=== PATIENT | female | born 1985 | race Caucasian/White ===

== ENCOUNTER → 2019-03-25 | Outpatient (CLI) | payer OTHER ==
[~2019-03-25] MED LIST: METHOTREXATE SODIUM (PF) 25 MG/ML 2 ML VIAL IM ONE
[2019-03-25 10:07] VITALS: BP 123/78; PULSE 69; RESP 18; TEMP 97.9
== END | disposition home or self-care (01) ==
LOC: PROCWHC3 08:58
PROVIDERS: ATTEND Obstetrics & Gynecology
DX: O00.109 Unspecified tubal pregnancy without intrauterine pregnancy (principal); Z3A.00 Weeks of gestation of pregnancy not specified
CPT/HCPCS: 96402; J9260

== ENCOUNTER → 2019-03-25 | Outpatient (CLI) | payer OTHER ==
[2019-03-25 09:01] LABS: HCT 40.9 % (34.0-46.0); HGB 13.2 gm/dL (11.4-16.0); MCH 28.4 pg (25.0-35.0); MCHC 32.2 g/dL (31.0-37.0); MCV 88.2 fL (80.0-100.0); Mean Platelet Volume 6.6; Platelet Count 256 k/uL (150-450); RBC 4.64 m/uL (3.80-5.40); RDW 12.6 % (11.5-15.5); WBC 4.7 k/uL (3.8-10.6)
[2019-03-25 16:50] LABS: HCG,Quantitative Serum 38.6 mIU/mL
== END | disposition home or self-care (01) ==
LOC: LABWHC1 08:44
PROVIDERS: ATTEND Obstetrics & Gynecology
DX: O00.90 Unspecified ectopic pregnancy without intrauterine pregnancy (principal); Z3A.00 Weeks of gestation of pregnancy not specified
CPT/HCPCS: 36415; 82565; 84450; 84520; 84702; 85027

== ENCOUNTER → 2019-03-28 | Outpatient (CLI) | payer OTHER | END | disposition home or self-care (01) | LOC: LABMAIN 14:10 | PROVIDERS: ATTEND Obstetrics & Gynecology | DX: O00.90 Unspecified ectopic pregnancy without intrauterine pregnancy (principal); Z3A.00 Weeks of gestation of pregnancy not specified | CPT/HCPCS: 36415; 84702 ==

== ENCOUNTER → 2019-03-31 | Outpatient (CLI) | payer OTHER ==
[2019-03-31 17:07] LABS: HCT 40.7 % (34.0-46.0); HGB 13.3 gm/dL (11.4-16.0); MCH 28.7 pg (25.0-35.0); MCHC 32.6 g/dL (31.0-37.0); Platelet Count 254 k/uL (150-450); RBC 4.63 m/uL (3.80-5.40); WBC 6.5 k/uL (3.8-10.6)
== END ==
LOC: LABWHC1 16:05
PROVIDERS: ATTEND Obstetrics & Gynecology
DX: O00.90 Unspecified ectopic pregnancy without intrauterine pregnancy (principal); Z3A.00 Weeks of gestation of pregnancy not specified
CPT/HCPCS: 36415; 84702; 85027

== ENCOUNTER → 2019-05-11 | Outpatient (CLI) | payer OTHER | END | disposition home or self-care (01) | LOC: LABWHC1 09:14 | PROVIDERS: ATTEND Obstetrics & Gynecology | DX: O20.0 Threatened abortion (principal) | CPT/HCPCS: 36415; 84702 ==

== ENCOUNTER → 2019-05-13 | Outpatient (CLI) | payer OTHER | END | disposition home or self-care (01) | LOC: LABMAIN 10:26 | PROVIDERS: ATTEND Obstetrics & Gynecology | DX: Z53.9 Procedure and treatment not carried out, unspecified reason (principal) ==

== ENCOUNTER → 2019-05-15 | Outpatient (CLI) | payer OTHER | END | disposition home or self-care (01) | LOC: LABWHC1 10:09 | PROVIDERS: ATTEND Obstetrics & Gynecology | DX: O20.0 Threatened abortion (principal); Z3A.00 Weeks of gestation of pregnancy not specified | CPT/HCPCS: 36415; 84702 ==

== ENCOUNTER → 2019-05-17 | Outpatient (CLI) | payer OTHER | END | disposition home or self-care (01) | LOC: LABWHC1 09:56 | PROVIDERS: ATTEND Obstetrics & Gynecology | DX: O20.0 Threatened abortion (principal); Z3A.00 Weeks of gestation of pregnancy not specified | CPT/HCPCS: 36415; 84702 ==

== ENCOUNTER → 2019-05-19 | Outpatient (CLI) | payer OTHER | END | disposition home or self-care (01) | LOC: LABWHC1 10:06 | PROVIDERS: ATTEND Obstetrics & Gynecology | DX: O20.0 Threatened abortion (principal); Z3A.00 Weeks of gestation of pregnancy not specified | CPT/HCPCS: 36415; 84702 ==

== ENCOUNTER → 2019-05-26 | Outpatient (CLI) | payer OTHER | END | disposition home or self-care (01) | LOC: LABWHC1 12:14 | PROVIDERS: ATTEND Obstetrics & Gynecology | DX: O03.9 Complete or unspecified spontaneous abortion without complication (principal) | CPT/HCPCS: 36415; 84702 ==

== ENCOUNTER → 2019-06-18 | Outpatient (CLI) | payer OTHER ==
--- NOTE | 2019-06-21 08:33 | MM ---
Reason for exam: screening (asymptomatic). Baseline mammogram. History: Patient is nulliparous. Family history of breast cancer in mother at age 33. Taking hormonal contraceptives beginning at age 25. Physical Findings: Nurse did not find any significant physical abnormalities on exam. MG Screening Mammo w CAD Bilateral CC and MLO view(s) were taken. The breast tissue is heterogeneously dense. This may lower the sensitivity of mammography. No suspicious abnormality. These results were verbally communicated with the patient and result sheet given to the patient on 06/18/19. ASSESSMENT: Negative, BI-RAD 1 RECOMMENDATION: Routine screening mammogram of both breasts in 1 year.
== END | disposition home or self-care (01) ==
LOC: RADMAMWWP 06:53
PROVIDERS: ATTEND Family Medicine
DX: Z12.31 Encounter for screening mammogram for malignant neoplasm of breast (principal)
CPT/HCPCS: 77067

== ENCOUNTER → 2020-10-17 | Outpatient (CLI) | payer OTHER | END | disposition home or self-care (01) | LOC: LABWHC1 14:37 | PROVIDERS: ATTEND Obstetrics & Gynecology | DX: O09.11 Supervision of pregnancy with history of ectopic pregnancy, first trimester (principal) | CPT/HCPCS: 36415; 84702 ==

== ENCOUNTER 2021-01-11 01:08 | Emergency (ER) | payer OTHER ==
[2021-01-11 01:16] VITALS: TEMP 97.8
--- NOTE | 2021-01-11 01:24 | ED ---
Chest Pain HPI - General Chief Complaint: Chest Pain Stated Complaint: Chest pain, 16 wks preg Time Seen by Provider: 01/11/21 01:19 Source: patient Mode of arrival: ambulatory Limitations: no limitations - History of Present Illness Initial Comments: 35-year-old female, 16 weeks , presents to emergency Department with a chief complaint of chest pain. Patient reports pain started while she was lying down at approximately 11 PM. Patient reports the abdominal pain started epigastric abdominal region and moved superiorly along the sternum, then radiated bilaterally under both breasts. She states this episode lasted for approximately 20 minutes and resolved. Patient reports her anxiety could also play a role in this. Patient reports the symptoms then return again but this time it lasted less. Denies associated shortness of breath. Denies any diaphoretic episodes, lightheadedness, dizziness, nausea or vomiting. She does report mild upper abdominal cramping which had resolved. Patient also has history of GERD and takes Protonix for it. She states this does not feel like her typical acid reflux. Denies any vaginal discharge, bleeding, hematuria, hematochezia, melena, dysuria, increased urgency or frequency. Her OB is she does not have any symptoms at this time. patient is A- and so is the . she was never given rhogam. patient took tylenol 1000mg prior to coming to ED. - Related Data Home Medications Medication Instructions Recorded Confirmed buPROPion [Wellbutrin] 100 mg PO DAILY 03/25/19 03/25/19 Allergies Allergy/AdvReac Type Severity Reaction Status Date / Time No Known Allergies Allergy Verified 01/11/21 01:16 Review of Systems ROS Statement: Those systems with pertinent positive or pertinent negative responses have been documented in the HPI. ROS Other: All systems not noted in ROS Statement are negative. EKG Findings - EKG Comments: EKG Findings:: Sinus arrhythmia. Ventricular rate 74, [place] 142, care is 90, QTC 441. Past Medical History Past Medical History: No Reported History History of Any Multi-Drug Resistant Organisms: None Reported Past Surgical History: No Surgical Hx Reported Past Psychological History: No Psychological Hx Reported Smoking Status: Never smoker Past Alcohol Use History: None Reported Past Drug Use History: None Reported General Exam Limitations: no limitations General appearance: alert, in no apparent distress, anxious Head exam: Present: atraumatic, normocephalic, normal inspection Eye exam: Present: normal appearance, PERRL, EOMI Pupils: Present: normal accommodation ENT exam: Present: normal exam, normal oropharynx, mucous membranes moist, TM's normal bilaterally, normal external ear exam Neck exam: Present: normal inspection, full ROM. Absent: tenderness Respiratory exam: Present: normal lung sounds bilaterally, chest wall tenderness (reproducible midsternal chest pain ). Absent: respiratory distress, wheezes, rales, rhonchi, stridor Cardiovascular Exam: Present: regular rate, normal rhythm, normal heart sounds GI/Abdominal exam: Present: soft, tenderness (Mild epigastric abdominal tenderness). Absent: distended, guarding, rebound, rigid Extremities exam: Present: normal inspection, full ROM, normal capillary refill. Absent: tenderness, pedal edema, joint swelling Back exam: Present: normal inspection, full ROM. Absent: tenderness, CVA tenderness (R), CVA tenderness (L) Neurological exam: Present: alert, oriented X3 Psychiatric exam: Present: normal affect, normal mood, anxious Skin exam: Present: warm, dry, intact, normal color Course Vital Signs 01/11/21 01/11/21 01:14 03:33 Temperature 97.8 F Pulse Rate 94 78 Respiratory 16 18 Rate Blood Pressure 142/79 106/64 O2 Sat by Pulse 96 99 Oximetry Chest Pain MDM - MDM 35-year-old female, 16 weeks , presents to emergency Department with a chief complaint of chest pain. On physical examination, patient is quite anxious as she doesn't have any symptoms at this time. Vital signs are within normal limits. Reproducible midsternal chest pain. No associated shortness of breath. CBC CMP unremarkable. Coags within normal limits. EKG showing sinus arrhythmia. Initial troponin is negative. UA showed no signs of UTI or proteinouria. Trace amount of ketones. Chest x-ray is unremarkable. Patient continues to be asymptomatic in emergency department. Initial blood pressure 142/79. Abdominal ultrasound reveals a single live intrauterine , 17 weeks 3 days gestation. heart tones 167. Repeat blood pressure 106/64. I advised her to follow-up with her OB. Strict return parameters were thoroughly discussed with patient was understanding and agreeable. Case discussed with Disposition Clinical Impression: Atypical chest pain Disposition: HOME SELF-CARE Condition: Stable Instructions (If sedation given, give patient instructions): Chest Pain (ED) Additional Instructions: Follow-up with her OB. Please return to the Emergency Department if symptoms worsen or any other concerns. Is patient prescribed a controlled substance at d/c from ED?: No Referrals: Cierra Montiel DO [Primary Care Provider] - 1-2 days Time of Disposition: 03:28
--- NOTE | 2021-01-11 02:18 | XR ---
EXAM: XR Chest, 2 Views CLINICAL HISTORY: ITS.REASON XR Reason: Chest Pain TECHNIQUE: Frontal and lateral views of the chest. COMPARISON: No relevant prior studies available. FINDINGS: Lungs: No focal consolidation. The pulmonary vasculature demonstrates no significant radiographic abnormality. Pleural space: Unremarkable. No pneumothorax. No large pleural effusion. Heart: Unremarkable. No cardiomegaly. Mediastinum: Unremarkable. No significant abnormality identified. The trachea is midline. Bones/joints: Unremarkable. IMPRESSION: No focal consolidation or acute cardiopulmonary process identified.
[2021-01-11 02:20] LABS: Appearance,Urine Clear (Clear); Bilirubin,Urine Negative (Negative); Blood,Urine Negative (Negative); Color,Urine Light Yellow; Glucose,Urine (UA) Negative (Negative); Ketones,Urine Trace (Negative); Leukocyte Esterase,Urine Negative (Negative); Nitrite,Urine Negative (Negative); Protein,Urine Negative (Negative); Specific Gravity,Urine 1.005 (1.001-1.035); Urobilinogen,Urine <2.0 mg/dL (<2.0)
[2021-01-11 02:24] LABS: Basophils % (A) 0 %; Eosinophils # (A) 0.2 k/uL (0-0.7); Eosinophils % (A) 2 %; HCT 36.2 % (34.0-46.0); HGB 12.3 gm/dL (11.4-16.0); Lymphocytes # (A) 1.3 k/uL (1.0-4.8); Lymphocytes % (A) 13 %; MCH 29.2 pg (25.0-35.0); MCHC 33.9 g/dL (31.0-37.0); MCV 86.2 fL (80.0-100.0); Mean Platelet Volume 7.7; Monocytes # (A) 0.5 k/uL (0-1.0); Monocytes % (A) 5 %; Neutrophils # (A) 7.6 k/uL (1.3-7.7); Neutrophils % (A) 79 %; Platelet Count 198 k/uL (150-450); RBC 4.21 m/uL (3.80-5.40); RDW 13.2 % (11.5-15.5); WBC 9.6 k/uL (3.8-10.6)
[2021-01-11 02:33] LABS: ALT 66 U/L (4-34); AST 65 U/L (14-36); African American GFR (CKD) >90 (>60 ml/min/1.73 sqM); Albumin 3.3 g/dL (3.5-5.0); Alkaline Phosphatase 56 U/L (38-126); Anion Gap 5 mmol/L; Blood Urea Nitrogen 8 mg/dL (7-17); Carbon Dioxide 26 mmol/L (22-30); Chloride 103 mmol/L (98-107); Glucose 95 mg/dL (74-99); INR 0.9 (<1.2); Magnesium 1.7 mg/dL (1.6-2.3); Non-African American GFR(CKD) >90 (>60 ml/min/1.73 sqM); Partial Thromboplastin Time 23.8 sec (22.0-30.0); Potassium 3.8 mmol/L (3.5-5.1); Prothrombin Time 9.6 sec (9.0-12.0); Sodium 134 mmol/L (137-145); Total Bilirubin 0.7 mg/dL (0.2-1.3)
[2021-01-11 03:33] VITALS: BP 106/64; PULSE 78; RESP 18
--- NOTE | 2021-01-11 03:43 | US ---
EXAM: US Second or Third Trimester , Transabdominal CLINICAL HISTORY: ITS.REASON US Reason: epigastric abd pain TECHNIQUE: Real-time transabdominal obstetrical ultrasound of the maternal pelvis and a second or third trimester with image documentation. COMPARISON: No relevant prior studies available. FINDINGS: Fetus: Terrazas. Heart rate: See below. Presentation: Single intrauterine gestation identified in the cephalic position. Positive heart tones noted at 167 bpm. Placenta: The placenta is posterior in location without evidence for previa or abruption. There is a hypoechoic structure along the deep margin of the placenta measuring only 1.3 x 0.6 x 2.2 cm. Evaluation for internal vascular flow was not performed in this region. Amniotic fluid: The ERLINDA is 10.3 cm. Anatomy: See below. BIOMETRICS Gestational age: The estimated gestational age by biometry is consistent with 17 weeks 3 days. BASILIO: The estimated date of delivery is 06/18/2021. EFW: The estimated weight is 182.8 g. BPD: The biparietal diameter is consistent with 17 weeks 6 days. HC: Head circumference is consistent with 17 weeks 6 days. AC: The abdominal circumference is consistent with 17 weeks 2 days. FL: The femur length is consistent with 16 weeks 5 days. MATERNAL: Uterus: Unremarkable. No myometrial mass. Cervix: The cervix is closed, measuring 3 cm. Free fluid: No free fluid. IMPRESSION: 1. Single intrauterine gestation identified in the cephalic position. Positive heart tones noted at 167 bpm. 2. The placenta is posterior in location without evidence for previa or abruption. 3. The estimated gestational age by biometry is consistent with 17 weeks 3 days. The estimated date of delivery is 06/18/2021. 4. The ERLINDA is 10.3 cm.
== END 2021-01-11 04:20 | disposition home or self-care (01) ==
LOC: EC 01:08
DX: O99.891 Other specified diseases and conditions complicating pregnancy (principal); O99.612 Diseases of the digestive system complicating pregnancy, second trimester; R07.89 Other chest pain; Z3A.16 16 weeks gestation of pregnancy
CPT/HCPCS: 36415; 71046; 76805; 80053; 81003; 83735; 84484; 85025; 85610; 85730; 93005; 99285

== ENCOUNTER 2021-01-12 14:36 | Inpatient (IN) | payer OTHER ==
--- NOTE | 2021-01-12 15:56 | ED ---
General Adult HPI <Remy Monge - Last Filed: 01/12/21 18:03> - General Source: patient, RN notes reviewed Mode of arrival: wheelchair Limitations: no limitations <Rory Herrera - Last Filed: 01/12/21 18:13> - General Chief complaint: Abdominal Pain Stated complaint: epigastric pain radiating to right flank Time Seen by Provider: 01/12/21 15:32 - History of Present Illness Initial comments: Patient is a 35-year-old female presents emergency, complaining of epigastric pain that radiates to her right flank. She did note that the pain came out of nowhere several hours ago was very intense 10 out of 10 but has since been relieved with time. She noted her epigastric was tender to the touch and [facility] pushed on it. She is a partially 17/2 weeks . Her did note that she is her fourth she's had 2 miscarriages and 1 ectopic. She was lying in bed comfortable in no apparent distress or pain during exam and interview. She did call her [employer] who told her to come in to get evaluated for possible gallbladder issues. She denied chest pain shortness breath headache nausea vomiting diarrhea constipation fever fatigue chills (Rory Herrera) - Related Data Home Medications Medication Instructions Recorded Confirmed Desvenlafaxine Succinate [Pristiq 50 mg PO DAILY 01/12/21 01/12/21 ER] Pantoprazole [Protonix] 40 mg PO DAILY 01/12/21 01/12/21 Skv-Ocjk-Aedbz Acid 1 cap PO DAILY 01/12/21 01/12/21 [-U Capsule (formulary)] buPROPion HCL [Wellbutrin XL] 300 mg PO DAILY 01/12/21 01/12/21 Allergies Allergy/AdvReac Type Severity Reaction Status Date / Time coconut Allergy Anaphylaxis Verified 01/12/21 17:06 Review of Systems ROS Other: All systems not noted in ROS Statement are negative. <Remy Monge - Last Filed: 01/12/21 18:03> ROS Other: All systems not noted in ROS Statement are negative. <Rory Herrera - Last Filed: 01/12/21 18:13> ROS Statement: Those systems with pertinent positive or pertinent negative responses have been documented in the HPI. Past Medical History Past Medical History: No Reported History History of Any Multi-Drug Resistant Organisms: None Reported Past Surgical History: No Surgical Hx Reported Past Psychological History: No Psychological Hx Reported Smoking Status: Never smoker Past Alcohol Use History: None Reported Past Drug Use History: None Reported <Rory Herrera - Last Filed: 01/12/21 18:13> General Exam Limitations: no limitations General appearance: alert, in no apparent distress Head exam: Present: atraumatic, normocephalic, normal inspection Eye exam: Present: normal appearance, PERRL, EOMI. Absent: scleral icterus, co njunctival injection, periorbital swelling ENT exam: Present: normal exam, mucous membranes moist Neck exam: Present: normal inspection. Absent: tenderness, meningismus, lymphadenopathy Respiratory exam: Present: normal lung sounds bilaterally. Absent: respiratory distress, wheezes, rales, rhonchi, stridor Cardiovascular Exam: Present: regular rate, normal rhythm, normal heart sounds. Absent: systolic murmur, diastolic murmur, rubs, gallop, clicks GI/Abdominal exam: Present: soft, normal bowel sounds. Absent: distended, tenderness, guarding, rebound, rigid Extremities exam: Present: normal inspection, full ROM, normal capillary refill. Absent: tenderness, pedal edema, joint swelling, calf tenderness Neurological exam: Present: alert, oriented X3, CN II-XII intact Psychiatric exam: Present: normal affect, normal mood Skin exam: Present: warm, dry, intact, normal color. Absent: rash <Rory Herrera - Last Filed: 01/12/21 18:13> Course Vital Signs 01/12/21 01/12/21 14:38 17:58 Temperature 97.9 F Pulse Rate 83 Respiratory 22 Rate Blood Pressure 131/88 118/75 O2 Sat by Pulse 100 Oximetry EKG Findings - EKG Comments: EKG Findings:: Vent Rate 69 beats minute, CT interval 134 ms, QRS duration 90 ms, QT/QTC 384/4 ms, PareT axis 2/90/3. Normal sinus rhythm, rightward axis, borderline ECG. <Rory Herrera - Last Filed: 01/12/21 18:13> Medical Decision Making - Lab Data Result diagrams: 01/12/21 16:43 01/12/21 16:43 <Remy Monge - Last Filed: 01/12/21 18:03> - Lab Data Result diagrams: 01/12/21 16:43 01/12/21 16:43 - EKG Data -: EKG Interpreted by Me EKG shows normal: sinus rhythm Rate: normal - Radiology Data Radiology results: report reviewed, image reviewed <Rory Herrera - Last Filed: 01/12/21 18:13> - Medical Decision Making Patient reevaluated and reexamined by myself, Dr. Monge. Patient is resting comfortably in bed, discomfort is mild at this time. Patient does have some mild tenderness right upper quadrant. Patient does have elevation of liver enzymes. Ultrasound negative. Case was discussed in detail with Dr. Kearns who does feel comfortable and an OB standpoint however does request surgical consult. Case discussed with Dr. Wilkins who is suspicious of recent passed gallstone. He does recommend admission with IV hydration and repeat labs in the morning. (Remy Monge) 32-year-old female complaining of epigastric pain that radiates to her right flank. Urinalysis, ultrasound of gallbladder ordered. Labs unremarkable. ultrasound and transvaginal ultrasound ordered. Ultrasounds within normal limits. Case discussed with Dr. Monge, was decided patient will be admitted to observation. With repeat labs in the morning (Rory Herrera) - Lab Data Lab Results 01/12/21 01/12/21 01/12/21 Range/Units 16:04 16:43 16:43 WBC 9.0 (3.8-10.6) k/uL RBC 4.43 (3.80-5.40) m/uL Hgb 13.1 (11.4-16.0) gm/dL Hct 39.0 (34.0-46.0) % MCV 87.9 (80.0-100.0) fL MCH 29.4 (25.0-35.0) pg MCHC 33.5 (31.0-37.0) g/dL RDW 13.3 (11.5-15.5) % Plt Count 206 (150-450) k/uL MPV 7.4 Neutrophils % 85 % Lymphocytes % 10 % Monocytes % 4 % Eosinophils % 1 % Basophils % 0 % Neutrophils # 7.6 (1.3-7.7) k/uL Lymphocytes # 0.9 L (1.0-4.8) k/uL Monocytes # 0.4 (0-1.0) k/uL Eosinophils # 0.1 (0-0.7) k/uL Basophils # 0.0 (0-0.2) k/uL Sodium 137 (137-145) mmol/L Potassium 4.1 (3.5-5.1) mmol/L Chloride 104 (98-107) mmol/L Carbon Dioxide 24 (22-30) mmol/L Anion Gap 9 mmol/L BUN 5 L (7-17) mg/dL Creatinine 0.52 (0.52-1.04) mg/dL Est GFR (CKD-EPI)AfAm >90 (>60 ml/min/1.73 sqM) Est GFR (CKD-EPI)NonAf >90 (>60 ml/min/1.73 sqM) Glucose 75 (74-99) mg/dL Calcium 9.7 (8.4-10.2) mg/dL Total Bilirubin 1.6 H (0.2-1.3) mg/dL AST 311 H (14-36) U/L ALT 490 H (4-34) U/L Alkaline Phosphatase 103 (38-126) U/L Total Protein 7.2 (6.3-8.2) g/dL Albumin 4.1 (3.5-5.0) g/dL Amylase 89 (30-110) U/L Lipase 334 H (23-300) U/L Urine Color Yellow Urine Appearance Clear (Clear) Urine pH 6.5 (5.0-8.0) Ur Specific Page 1.003 (1.001-1.035) Urine Protein Negative (Negative) Urine Glucose (UA) Negative (Negative) Urine Ketones Negative (Negative) Urine Blood Negative (Negative) Urine Nitrite Negative (Negative) Urine Bilirubin Negative (Negative) Urine Urobilinogen <2.0 (<2.0) mg/dL Ur Leukocyte Esterase Negative (Negative) - EKG Data EKG Comments: Vent Rate 69 beats minute, CT interval 134 ms, QRS duration 90 ms, QT/QTC 384/4 ms, PareT axis 2/90/3. Normal sinus rhythm, rightward axis, borderline ECG. (Rory Herrera) - Radiology Data Gallbladder: No gallstones or dilated ducts. Normal right kidney. No free fluid ultrasound: Ultrasound gestational age is 17 weeks 5 days. No [place] getting process seen (Rory Herrera) Disposition <Remy Monge - Last Filed: 01/12/21 18:03> Is patient prescribed a controlled substance at d/c from ED?: No Time of Disposition: 18:13 <Rory Herrera - Last Filed: 01/12/21 18:13> Clinical Impression: Abnormal labor, Elevated liver enzymes Disposition: ADMITTED IP TO THIS HOSP Condition: Stable Referrals: Cierra Montiel DO [Primary Care Provider] - 1-2 days
[2021-01-12 16:14] LABS: Appearance,Urine Clear (Clear); Bilirubin,Urine Negative (Negative); Blood,Urine Negative (Negative); Color,Urine Yellow; Glucose,Urine (UA) Negative (Negative); Ketones,Urine Negative (Negative); Leukocyte Esterase,Urine Negative (Negative); Nitrite,Urine Negative (Negative); PH, Urine 6.5 (5.0-8.0); Protein,Urine Negative (Negative); Specific Gravity,Urine 1.003 (1.001-1.035); Urobilinogen,Urine <2.0 mg/dL (<2.0)
[2021-01-12] MEDS ORDERED: SODIUM CHLORIDE 0.9% 1,000 ML IV STA (16:33)
--- NOTE | 2021-01-12 16:39 | US ---
EXAMINATION TYPE: US gallbladder DATE OF EXAM: 01/12/2021 COMPARISON: NONE CLINICAL HISTORY: Epigastric pain that radiates to her right flank.. EXAM MEASUREMENTS: Liver Length: 11.8 cm Gallbladder Wall: 0.3 cm CBD: 0.4 cm Right Kidney: 12.8 x 5.2 x 4.6 cm Technically difficult exam due to extensive midline bowel gas. Pancreas: visualized portions wnl Liver: wnl Gallbladder: No stones seen Evidence for sonographic Chan's sign: Yes CBD: wnl Right Kidney: No hydronephrosis or masses seen IMPRESSION: No gallstones or dilated ducts. Normal right kidney. No free fluid.
[2021-01-12 16:53] LABS: Basophils % (A) 0 %; Eosinophils # (A) 0.1 k/uL (0-0.7); Eosinophils % (A) 1 %; HGB 13.1 gm/dL (11.4-16.0); Lymphocytes # (A) 0.9 k/uL (1.0-4.8); Lymphocytes % (A) 10 %; MCH 29.4 pg (25.0-35.0); MCHC 33.5 g/dL (31.0-37.0); MCV 87.9 fL (80.0-100.0); Mean Platelet Volume 7.4; Monocytes # (A) 0.4 k/uL (0-1.0); Monocytes % (A) 4 %; Neutrophils # (A) 7.6 k/uL (1.3-7.7); Neutrophils % (A) 85 %; Platelet Count 206 k/uL (150-450); RBC 4.43 m/uL (3.80-5.40); RDW 13.3 % (11.5-15.5)
[2021-01-12 17:01] LABS: ALT 490 U/L (4-34); AST 311 U/L (14-36); African American GFR (CKD) >90 (>60 ml/min/1.73 sqM); Albumin 4.1 g/dL (3.5-5.0); Alkaline Phosphatase 103 U/L (38-126); Amylase 89 U/L (30-110); Anion Gap 9 mmol/L; Blood Urea Nitrogen 5 mg/dL (7-17); Calcium 9.7 mg/dL (8.4-10.2); Carbon Dioxide 24 mmol/L (22-30); Chloride 104 mmol/L (98-107); Glucose 75 mg/dL (74-99); Lipase 334 U/L (23-300); Non-African American GFR(CKD) >90 (>60 ml/min/1.73 sqM); Potassium 4.1 mmol/L (3.5-5.1); Sodium 137 mmol/L (137-145); Total Bilirubin 1.6 mg/dL (0.2-1.3); Total Protein 7.2 g/dL (6.3-8.2)
--- NOTE | 2021-01-12 17:11 | US ---
EXAMINATION TYPE: US OB >= 14 wk fetus DATE OF EXAM: 01/12/2021 COMPARISON: Yesterday CLINICAL HISTORY: Abdominal pain Pain. Ultrasound was also performed 1 day prior. No injury since l ast exam. TECHNIQUE: Transabdominal (TA) GESTATIONAL AGE / DATING Physician Established: (16 weeks/5 days) EDC: 06/24/2021 Dates by Current Scan: (17 weeks/5 days) EDC: 06/17/2021 Beta HCG (if available): Not available at this time SURVEY IUP: Single PLACENTA: Posterior PREVIA: No Previa ERLINDA: 13.4 cm Normal CERVICAL LENGTH (transabdominal: norm > 3.0cm): 3.1 cm BIOMETRY PRESENTATION: Variable BPD: 4.2 cm 18 weeks / 6 days HC: 14.6 cm 17 weeks / 5 days AC: 12.6 cm 18 weeks / 1 days FL: 2.2 cm 16 weeks / 3 days ESTIMATED WEIGHT IN GRAMS: 195.6 grams ESTIMATED WEIGHT IN LBS/OZ: 0 lbs. 7 oz. WEIGHT PERCENTAGE BASED ON ESTABLISHED DATES: 87.8% HC/AC: 1.2 Normal FL/AC: 17.2 HEART RATE: 148 bpm RHYTHM: Normal IMPRESSION: Ultrasound gestational age is 17 weeks and 5 days. No complicating process seen.
[2021-01-12] MEDS: SODIUM CHLORIDE 0.9% 1,000 ML IV SCH (19:45)
[2021-01-12] MEDS ORDERED: ACETAMINOPHEN TAB 325 MG TAB PO PRN (21:27)
[2021-01-12] MEDS ORDERED: ACETAMINOPHEN TAB 325 MG TAB PO SCH (21:30)
[2021-01-12] MEDS ORDERED: ONDANSETRON 4 MG/2 ML VIAL IVP SCH (21:30)
[2021-01-12 23:55] LABS: INR 0.9 (<1.2)
[2021-01-12 23:56] LABS: Partial Thromboplastin Time 23.7 sec (22.0-30.0)
[2021-01-13] MEDS: SODIUM CHLORIDE 0.9% 1,000 ML IV SCH ×2 (09:00→15:08)
[2021-01-13 09:56] VITALS: BMI 27.8
[2021-01-13 09:59] LABS: ALT 374 U/L (4-34); AST 177 U/L (14-36); African American GFR (CKD) >90 (>60 ml/min/1.73 sqM); Alkaline Phosphatase 93 U/L (38-126); Amylase 64 U/L (30-110); Anion Gap 4 mmol/L; Blood Urea Nitrogen 4 mg/dL (7-17); Calcium 8.8 mg/dL (8.4-10.2); Carbon Dioxide 24 mmol/L (22-30); Chloride 108 mmol/L (98-107); Glucose 79 mg/dL (74-99); Lipase 225 U/L (23-300); Non-African American GFR(CKD) >90 (>60 ml/min/1.73 sqM); Potassium 3.9 mmol/L (3.5-5.1); Sodium 136 mmol/L (137-145); Total Bilirubin 0.8 mg/dL (0.2-1.3); Total Protein 5.7 g/dL (6.3-8.2)
[2021-01-13 10:01] LABS: Basophils % (A) 0 %; Eosinophils # (A) 0.1 k/uL (0-0.7); Eosinophils % (A) 1 %; HCT 35.9 % (34.0-46.0); HGB 11.9 gm/dL (11.4-16.0); Lymphocytes # (A) 1.2 k/uL (1.0-4.8); Lymphocytes % (A) 16 %; MCH 29.6 pg (25.0-35.0); MCHC 33.2 g/dL (31.0-37.0); MCV 89.2 fL (80.0-100.0); Mean Platelet Volume 7.8; Monocytes # (A) 0.3 k/uL (0-1.0); Monocytes % (A) 5 %; Neutrophils # (A) 5.6 k/uL (1.3-7.7); Neutrophils % (A) 78 %; Platelet Count 184 k/uL (150-450); RBC 4.02 m/uL (3.80-5.40); RDW 13.1 % (11.5-15.5); WBC 7.3 k/uL (3.8-10.6)
--- NOTE | 2021-01-13 11:04 | P.CON ---
Consult Note - . Consult date: 01/13/21 Assessment/Plan:: 35 year old at 17 wks gestation. Presented to ER with RUQ and epigastric pain, 10/10 severity, triggered after Ensure drink. U/S gallbladder (-) but elevated liver enzymes noted. U/S fetus WNL. PMHx: anxiety PSHx: ovarian cyst excision Meds: protonix, buproprion, vitamin Allergies: coconut (itching) Social hx: , nonsmoker, no alcohol or drug use. 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 Pt is BRCA (-). On exam pt is 5'5", 166#, BP 119/56. Genreal exam WNL, chest clear, RRR with out murmur. Abdomen is soft, fundus 17 wk size, FHT's 150's. Extremities (-). Active bowel sounds. Pain this morning 2/10, patient is hungry. Repeat labs improved, ALT: 374, AST: 177, Lipase 225. WBC 9.0 Impression" 17 wk IUP with suspected passage of biliary stone. Improved this morning. Plan: Discussed in detail with Dr. Jean-Baptiste at the bedside. Will advance diet now, monitor progress. Option of cholecystectomy vs. conservative management discussed. Patient ot discuss with , possible surgery tomorrow am pending decision and clinical progress. Risks of surgery in the second trimester discussed. Will follow.
[2021-01-13 12:04] LABS: Urine Alcohol Negative (Negative); Urine Barbiturate Negative (Negative); Urine Cocaine Negative (Negative); Urine Methadone Negative (Negative); Urine Opiates Negative (Negative); Urine Phencyclidine Negative (Negative)
--- NOTE | 2021-01-13 12:07 | P.GSHP ---
History of Present Illness H&P Date: 01/13/21 Chief Complaint: Abdominal pain This is a 35-year-old female who is 17 weeks . Patient's had intermittent attacks of right quadrant pain which radiated to her back. Patient had 2 visits the emergency room this week. Patient's found have evidence of choledocholithiasis on her liver function tests. Patient states her pain is improved currently. Past Medical History Past Medical History: No Reported History History of Any Multi-Drug Resistant Organisms: None Reported Past Surgical History: No Surgical Hx Reported Additional Past Surgical History / Comment(s): Ovarian cyst removal 2001. 1 Ectopic pregnacy. 2 miscarrages Past Anesthesia/Blood Transfusion Reactions: No Reported Reaction Past Psychological History: Anxiety, Depression Smoking Status: Never smoker Past Alcohol Use History: None Reported Past Drug Use History: None Reported - Past Family History Mother Family Medical History: Diabetes Mellitus Additional Family Medical History / Comment(s): Breast cancer in early Medications and Allergies Home Medications Medication Instructions Recorded Confirmed Type Desvenlafaxine Succinate [Pristiq 50 mg PO DAILY 01/12/21 01/12/21 History ER] Pantoprazole [Protonix] 40 mg PO DAILY 01/12/21 01/12/21 History Jyv-Gpee-Tyetk Acid 1 cap PO DAILY 01/12/21 01/12/21 History [-U Capsule (formulary)] buPROPion HCL [Wellbutrin XL] 300 mg PO DAILY 01/12/21 01/12/21 History Allergies Allergy/AdvReac Type Severity Reaction Status Date / Time coconut Allergy Anaphylaxis Verified 01/12/21 17:06 nicotine Allergy Rash/Hives Verified 01/12/21 23:19 Surgical - Exam Vital Signs Temp Pulse Resp BP Pulse Ox 97.9 F 83 22 131/88 100 01/12/21 14:38 01/12/21 14:38 01/12/21 14:38 01/12/21 14:38 01/12/21 14:38 - General well developed, well nourished, no distress - Eyes PERRL - ENT normal pinna - Neck no masses - Respiratory normal expansion - Cardiovascular Rhythm: regular - Abdomen Abdomen: soft, non tender Results - Labs 01/13/21 08:58 01/13/21 08:58 Abnormal Lab Results - Last 24 Hours (Table) 0301/12/21 01/13/21 Range/Units 16:43 16:43 08:58 Lymphocytes # 0.9 L (1.0-4.8) k/uL Sodium 136 L (137-145) mmol/L Chloride 108 H (98-107) mmol/L BUN 5 L 4 L (7-17) mg/dL Creatinine 0.51 L (0.52-1.04) mg/dL Total Bilirubin 1.6 H (0.2-1.3) mg/dL AST 311 H 177 H (14-36) U/L ALT 490 H 374 H (4-34) U/L Total Protein 5.7 L (6.3-8.2) g/dL Albumin 3.0 L (3.5-5.0) g/dL Lipase 334 H (23-300) U/L Diabetes panel 01/12/21 01/13/21 Range/Units 16:43 08:58 Sodium 137 136 L (137-145) mmol/L Potassium 4.1 3.9 (3.5-5.1) mmol/L Chloride 104 108 H (98-107) mmol/L Carbon Dioxide 24 24 (22-30) mmol/L BUN 5 L 4 L (7-17) mg/dL Creatinine 0.52 0.51 L (0.52-1.04) mg/dL Glucose 75 79 (74-99) mg/dL Calcium 9.7 8.8 (8.4-10.2) mg/dL AST 311 H 177 H (14-36) U/L ALT 490 H 374 H (4-34) U/L Alkaline Phosphatase 103 93 (38-126) U/L Total Protein 7.2 5.7 L (6.3-8.2) g/dL Albumin 4.1 3.0 L (3.5-5.0) g/dL Calcium panel 01/12/21 01/13/21 Range/Units 16:43 08:58 Calcium 9.7 8.8 (8.4-10.2) mg/dL Albumin 4.1 3.0 L (3.5-5.0) g/dL Pituitary panel 01/12/21 01/13/21 Range/Units 16:43 08:58 Sodium 137 136 L (137-145) mmol/L Potassium 4.1 3.9 (3.5-5.1) mmol/L Chloride 104 108 H (98-107) mmol/L Carbon Dioxide 24 24 (22-30) mmol/L BUN 5 L 4 L (7-17) mg/dL Creatinine 0.52 0.51 L (0.52-1.04) mg/dL Glucose 75 79 (74-99) mg/dL Calcium 9.7 8.8 (8.4-10.2) mg/dL Adrenal panel 01/12/21 01/13/21 Range/Units 16:43 08:58 Sodium 137 136 L (137-145) mmol/L Potassium 4.1 3.9 (3.5-5.1) mmol/L Chloride 104 108 H (98-107) mmol/L Carbon Dioxide 24 24 (22-30) mmol/L BUN 5 L 4 L (7-17) mg/dL Creatinine 0.52 0.51 L (0.52-1.04) mg/dL Glucose 75 79 (74-99) mg/dL Calcium 9.7 8.8 (8.4-10.2) mg/dL Total Bilirubin 1.6 H 0.8 (0.2-1.3) mg/dL AST 311 H 177 H (14-36) U/L ALT 490 H 374 H (4-34) U/L Alkaline Phosphatase 103 93 (38-126) U/L Total Protein 7.2 5.7 L (6.3-8.2) g/dL Albumin 4.1 3.0 L (3.5-5.0) g/dL Assessment and Plan Assessment: Choledocholithiasis. Patient most likely has microcalcifications. The patient will be scheduled for laparoscopic cholecystectomy in .. Dr. Manjarrez, myself and the patient have discussed these findings.
[2021-01-13] MEDS: buPROPion XL 300 MG TAB.ER.24H PO SCH (16:04)
[2021-01-13] MEDS: DESVENLAFAXINE SUCCINATE 50 MG TAB.ER.24H PO SCH (16:04)
[2021-01-13] MEDS: ONDANSETRON 4 MG/2 ML VIAL IVP PRN (17:39)
[2021-01-13 18:55] LABS: Hepatitis A Antibody IgM Non-Reactive (Non-Reactive); Hepatitis B Core IgM Non-Reactive (Non-Reactive); Hepatitis B Surface Antigen Non-Reactive (Non-Reactive); Hepatitis C IgG Antibody Non-Reactive (Non-Reactive)
--- NOTE | 2021-01-13 20:34 | CONS ---
CONSULTATION I am covering for Dr. Blevins. DATE OF SERVICE: 01/13/2021. REASON FOR CONSULTATION: Advice regarding anxiety, depression requested by Dr. Alejandre. HISTORY OF PRESENT ILLNESS: This 35-year-old woman with a past medical history of anxiety, depression, history of ectopic , miscarriages, ovarian cyst removal in 2001, being followed by Dr. Blevins in the outpatient setting is complaining of right upper quadrant abdominal pain. The patient came to [facility]. Cholelithiasis suspected and Dr. Alejandre is planning tentative cholecystectomy. The patient is apparently 17 weeks . The patient has seen Dr. Manjarrez also. There is no history of fever, rigors or chills. No history of headache, loss of consciousness, seizures. Liver enzymes elevated. PAST MEDICAL HISTORY: History of ovarian cyst. History of ectopic . Miscarriages. Anxiety and depression. MEDICATIONS: Home medications include: Bupropion, multivitamins, and Protonix, Pristiq ER. ALLERGIES: NICOTINE. FAMILY HISTORY: History of diabetes, breast cancer. SOCIAL HISTORY: No history of smoking. No history of alcohol. REVIEW OF SYSTEMS: ENT: No diminished vision. No diminished hearing. CARDIOVASCULAR: No angina. RESPIRATORY: As mentioned earlier. GI: As mentioned earlier. : As mentioned earlier. NERVOUS SYSTEMS: No numbness, weakness. ALLERGY/IMMUNOLOGY: No asthma or hayfever. MUSCULOSKELETAL: As mentioned earlier. HEMATOLOGY/ONCOLOGY: No history of anemia. ENDOCRINE: No history of diabetes or hypothyroidism. CONSTITUTIONAL: As mentioned earlier. DERMATOLOGY: Negative. RHEUMATOLOGY: Negative. PSYCHIATRIC: As mentioned earlier. PHYSICAL EXAM: Patient is alert and oriented times three. Pulse 83, blood pressure 137/70, respiration 18, temperature 98.3. Pulse ox 94% on room air. HEENT is conjunctivae normal. NECK: No JVD. CARDIOVASCULAR: S1, S2 muffled. RESPIRATION: Breath sounds diminished in the bases. No rhonchi. No crackles. ABDOMEN: Soft, 17 weeks , no discomfort. No guarding. No rigidity. No mass palpable. LEGS: No edema. NERVOUS SYSTEM: No focal deficits. LABORATORY DATA: CBC within normal limits. Sodium 136. LFT are 311 and 490, currently 177 and 374. Lipase is 334. ASSESSMENT: 1. Upper abdominal possibly acute cholelithiasis and cholecystitis. 2. Elevated LFTs. 3. Elevated lipase. 4. Hyponatremia. 5. Seventeen week . 6. History of anxiety, depression. 7. Ectopic . 8. Miscarriage. RECOMMENDATIONS AND DISCUSSION: In this 35 -year-old woman who presented with multiple medical issues, at this time I recommend to continue the current management and symptomatic treatment. Otherwise, at this time, I recommend repeat labs. Closely follow with surgery. Hepatitis panel has been noted. Otherwise, DVT prophylaxis and we will follow the patient closely. Thank you Dr. Alejandre for letting us participate in the care of this patient. Prognosis guarded. MMODL / IJN: [id number] / MTDD
[2021-01-14 06:42] LABS: Basophils % (A) 0 %; Eosinophils # (A) 0.2 k/uL (0-0.7); Eosinophils % (A) 2 %; HGB 11.8 gm/dL (11.4-16.0); Lymphocytes # (A) 1.4 k/uL (1.0-4.8); Lymphocytes % (A) 21 %; MCH 30.1 pg (25.0-35.0); MCHC 33.8 g/dL (31.0-37.0); MCV 89.2 fL (80.0-100.0); Mean Platelet Volume 7.5; Monocytes # (A) 0.3 k/uL (0-1.0); Monocytes % (A) 5 %; Neutrophils # (A) 4.8 k/uL (1.3-7.7); Neutrophils % (A) 72 %; Platelet Count 172 k/uL (150-450); RBC 3.92 m/uL (3.80-5.40); WBC 6.7 k/uL (3.8-10.6)
[2021-01-14 07:06] LABS: ALT 308 U/L (4-34); AST 102 U/L (14-36); African American GFR (CKD) >90 (>60 ml/min/1.73 sqM); Albumin 2.8 g/dL (3.5-5.0); Alkaline Phosphatase 77 U/L (38-126); Anion Gap 4 mmol/L; Blood Urea Nitrogen 3 mg/dL (7-17); Calcium 8.4 mg/dL (8.4-10.2); Carbon Dioxide 24 mmol/L (22-30); Chloride 109 mmol/L (98-107); Glucose 82 mg/dL (74-99); Non-African American GFR(CKD) >90 (>60 ml/min/1.73 sqM); Potassium 3.7 mmol/L (3.5-5.1); Sodium 137 mmol/L (137-145); Total Bilirubin 0.5 mg/dL (0.2-1.3); Total Protein 5.4 g/dL (6.3-8.2)
[2021-01-14] MEDS ORDERED: IV FLUID CONTINUATION 1,000 ML IV ONE (07:27)
[2021-01-14] MEDS ORDERED: ePHEDrine SULFATE/0.9% NACL/PF 50 MG/5 ML SYRINGE IV ONE (08:23)
[2021-01-14] MEDS ORDERED: ONDANSETRON 4 MG/2 ML VIAL ONE (08:23)
[2021-01-14] MEDS ORDERED: NEOSTIGMINE 1 MG/ML 10 ML VIAL ONE (08:23)
[2021-01-14] MEDS ORDERED: SUCCINYLCHOLINE CHLORIDE 100 MG/5 ML SYR IV ONE (08:23)
[2021-01-14] MEDS ORDERED: DEXAMETHASONE SOD PHOSPHATE 4 MG/ML 1 ML VIAL ONE (08:23)
[2021-01-14] MEDS ORDERED: GLYCOPYRROLATE 0.2 MG/ML 2 ML VIAL ONE (08:23)
[2021-01-14] MEDS ORDERED: ROCURONIUM 10 MG/ML (5 ML VIAL) IV ONE (08:23)
[2021-01-14] MEDS ORDERED: LIDOCAINE 1% INJ 10MG/ML (20 ML MDV) ONE (08:23)
[2021-01-14] MEDS ORDERED: fentaNYL (PF) 50 MCG/ML 2 ML AMP ONE (08:23)
[2021-01-14] MEDS ORDERED: PROPOFOL 10 MG/ML 20 ML VIAL IV ONE (08:23)
[2021-01-14] MEDS ORDERED: BUPIVACAIN-EPI 0.5%-1:200,000 30 ML VIAL SQ ONE ×2 (08:38→08:52)
[2021-01-14] MEDS ORDERED: DESVENLAFAXINE SUCCINATE 50 MG TAB.ER.24H PO SCH (09:00)
--- NOTE | 2021-01-14 09:06 | P.PN ---
Subjective Progress Note Date: 01/14/21 Principal diagnosis: 17 week intrauterine , gallbladder stones and inflammation Patient presently in the operating room with Dr. Cameron, undergoing a cholecystectomy. Objective - Vital Signs Vital signs: Vital Signs Temp 97.9 F 01/14/21 07:36 Pulse 69 01/14/21 07:36 Resp 16 01/14/21 07:36 BP 111/70 01/14/21 07:36 Pulse Ox 99 01/14/21 07:36 Intake & Output 01/13/21 01/14/21 01/14/21 18:59 06:59 18:59 Weight 75.8 kg Other: Voiding Method Toilet # Voids 3 2 2 - Constitutional General appearance: Present: average body habitus, cooperative - EENT Eyes: Present: PERRLA - Labs CBC & Chem 7: 01/14/21 06:28 01/14/21 06:28 Labs: Abnormal Lab Results - Last 24 Hours (Table) 01/13/21 01/14/21 Range/Units 08:58 06:28 Sodium 136 L (137-145) mmol/L Chloride 108 H 109 H (98-107) mmol/L BUN 4 L 3 L (7-17) mg/dL Creatinine 0.51 L (0.52-1.04) mg/dL AST 177 H 102 H (14-36) U/L ALT 374 H 308 H (4-34) U/L Total Protein 5.7 L 5.4 L (6.3-8.2) g/dL Albumin 3.0 L 2.8 L (3.5-5.0) g/dL Assessment and Plan Assessment: 17 week intrauterine , for cholecystectomy this morning. Plan: Postoperative plan per Dr. Cameron. We'll see patient in the office in 2-3 weeks from the obstetric standpoint. Time with Patient: Less than 30
[2021-01-14] MEDS: SODIUM CHLORIDE 0.9% 1,000 ML IV SCH ×3 (09:08→18:34)
[2021-01-14] MEDS ORDERED: HYDROmorphone 1 MG/ML 1 ML SYRINGE IVP PRN (09:36)
--- NOTE | 2021-01-14 09:36 | P.OP ---
Date of Procedure: 01/14/21 Preoperative Diagnosis: Choledocholithiasis Postoperative Diagnosis: Choledocholithiasis Cholecystitis Procedure(s) Performed: Laparoscopic cholecystectomy Anesthesia: JESSICA Surgeon: Ld Alejandre Estimated Blood Loss (ml): 5 Pathology: other (Gallbladder) Condition: stable Disposition: PACU Description of Procedure: The patient was placed on the operating table. The patient received a general endotracheal tube anesthesia. The patients abdomen was prepped and draped in the usual sterile fashion. Through an infraumbilical stab incision, the fascia of the anterior abdominal wall was grasped with a pair of Kochers and then the Veress needle was placed in the peritoneal cavity. Position of the Veress needle was confirmed with positive drop test. The abdomen was then insufflated. After adequate insufflation, the 10 mm trocar was placed in the peritoneal cavity. Following this the laparoscope was placed in the peritoneal cavity. The patient was placed in the head-up, right side up position and then a 5 mm trocar was placed in the right lateral and right subcostal position under direct visualization. A 8 mm trocar was placed in the epigastric position. The gallbladder was grasped in the fundus and infundibulum. Traction on the gallbladder was placed in the lateral and the cephalad positions. The triangle of Calot was visualized.. The cystic duct was bluntly dissected until the union of the cystic duct and common bile duct was seen. A critical view of safety was achieved. The cystic duct was then divided and sealed with the Harmonic scissors. A PDS Endoloop was then placed throughout the cystic duct stump. The cystic artery divided and sealed with the Harmonic scissors. The gallbladder was then removed from the liver bed using Harmonic scissors. The gallbladder was then extracted through the epigastric port site. Operative field was checked for any bleeding spots and Harmonic scissors was used to coagulate the liver bed. The abdomen was irrigated. The trocars were removed. The skin was closed using interrupted 3-0 Vicryl suture. Dermabond dressing were applied. The patient tolerated the procedure well.
[2021-01-14] MEDS: DESVENLAFAXINE SUCCINATE 50 MG TAB.ER.24H PO SCH (14:24)
[2021-01-14] MEDS: PANTOPRAZOLE 40 MG TABLET PO SCH (14:24)
[2021-01-14] MEDS: PRENATAL VIT-IRON-FOLIC ACID 1 EACH CAP PO SCH (14:24)
[2021-01-14] MEDS: buPROPion XL 300 MG TAB.ER.24H PO SCH (14:24)
[2021-01-14] MEDS: HYDROcodone/APAP 7.5-325MG 1 EACH TAB PO PRN ×2 (15:06→20:51)
--- NOTE | 2021-01-14 16:47 | PN ---
PROGRESS NOTE DATE OF SERVICE: 01/14/2021 I am covering for Dr. Blevins. INTERVAL HISTORY: This is a 35-year-old woman was admitted with upper abdominal pain possibly cholelithiasis and choledocholithiasis, underwent laparoscopic cholecystectomy by Dr. Alejandre. The patient is 17 weeks . STEWARD/STEWARDESS THIRD is following the patient closely. No chest pain. No palpitations. No fever. PHYSICAL EXAMINATION: GENERAL: Patient is alert and oriented times three. VITAL SIGNS: Pulse 68, blood pressure 102/61, respirations 18, temperature 97, pulse ox 98% on room air. HEENT: Conjunctivae normal. Oral mucosa moist. NECK: No jugular venous distention. No carotid bruits. No lymph node enlargement. RESPIRATORY: Breath sounds diminished at the bases. No rhonchi, no crackles. HEART: S1 and S2, muffled. ABDOMEN: Soft, mild diffuse tenderness in the upper quadrant. EXTREMITIES: No edema, no swelling. NERVOUS: No focal deficits. LABORATORY DATA: CBC within normal. Sodium 137, potassium 3.7. AST is 102 and ALT is 308. ASSESSMENT: 1. Upper abdominal pain, possible acute cholelithiasis and choledocholithiasis, status post laparoscopic cholecystectomy. 2. Elevated LFTs. 3. Elevated lipase. 4. Hyponatremia. 5. Seventeen weeks . 6. History of anxiety, depression. 7. History of two pregnancies. 8. History of miscarriage. RECOMMENDATION AND DISCUSSION: Recommend to continue current management and symptomatic treatment. Otherwise, at this time I recommend repeat labs and Dr. Blevins will follow tomorrow. DVT prophylaxis. The rest of the recommendations per Surgery. Further recommendations to follow. MMODL / IJN: [id number] /
[2021-01-14] MEDS: ONDANSETRON 4 MG/2 ML VIAL IVP PRN (19:00)
[2021-01-15] MEDS: SODIUM CHLORIDE 0.9% 1,000 ML IV SCH (03:02)
[2021-01-15 03:05] VITALS: TEMP 98.5
[2021-01-15] MEDS: PANTOPRAZOLE 40 MG TABLET PO SCH (07:09)
[2021-01-15 07:40] LABS: Basophils % (A) 0 %; Eosinophils # (A) 0.1 k/uL (0-0.7); Eosinophils % (A) 1 %; HCT 33.4 % (34.0-46.0); HGB 11.6 gm/dL (11.4-16.0); Lymphocytes # (A) 1.5 k/uL (1.0-4.8); Lymphocytes % (A) 18 %; MCH 31.3 pg (25.0-35.0); MCHC 34.9 g/dL (31.0-37.0); MCV 89.8 fL (80.0-100.0); Mean Platelet Volume 7.7; Monocytes # (A) 0.4 k/uL (0-1.0); Monocytes % (A) 5 %; Neutrophils # (A) 6.3 k/uL (1.3-7.7); Neutrophils % (A) 76 %; Platelet Count 168 k/uL (150-450); RBC 3.72 m/uL (3.80-5.40); RDW 13.2 % (11.5-15.5); WBC 8.3 k/uL (3.8-10.6)
[2021-01-15 08:06] LABS: ALT 260 U/L (4-34); AST 97 U/L (14-36); African American GFR (CKD) >90 (>60 ml/min/1.73 sqM); Albumin 2.7 g/dL (3.5-5.0); Alkaline Phosphatase 79 U/L (38-126); Anion Gap 4 mmol/L; Blood Urea Nitrogen 2 mg/dL (7-17); Calcium 8.3 mg/dL (8.4-10.2); Carbon Dioxide 23 mmol/L (22-30); Chloride 109 mmol/L (98-107); Glucose 82 mg/dL (74-99); Non-African American GFR(CKD) >90 (>60 ml/min/1.73 sqM); Potassium 3.3 mmol/L (3.5-5.1); Sodium 136 mmol/L (137-145); Total Bilirubin 0.4 mg/dL (0.2-1.3); Total Protein 5.3 g/dL (6.3-8.2)
[2021-01-15] MEDS ORDERED: POTASSIUM CHLORIDE ER 20 MEQ TAB.ER PO STA (08:20)
[2021-01-15] MEDS: PRENATAL VIT-IRON-FOLIC ACID 1 EACH CAP PO SCH (08:34)
[2021-01-15] MEDS: buPROPion XL 300 MG TAB.ER.24H PO SCH (08:34)
[2021-01-15] MEDS: DESVENLAFAXINE SUCCINATE 50 MG TAB.ER.24H PO SCH (08:34)
[2021-01-15 09:40] VITALS: BP 114/76; PULSE 78; RESP 16
--- NOTE | 2021-01-15 13:28 | P.DS ---
Providers Date of admission: 01/13/21 23:07 Expected date of discharge: 01/15/21 Attending physician: Ld Alejandre Consults: 01/12/21 18:09 Consult Physician Stat Consulting Provider: Sophia Manjarrez Consult Reason/Comments: Possible cholecystitis while Do you want consulting provider notified?: Already Contacted 01/13/21 12:12 Consult Physician Routine Consulting Provider: Darin Blevins Consult Reason/Comments: med manage Do you want consulting provider notified?: Yes Primary care physician: Cierra Montiel Hospital Course: discharge diagnosis 1. Acute Cholecystitis status post laparoscopic cholecystectomy 2. Choledocholithiasis 3. Hypokalemia patient received potassium supplement prior to discharge Hospital course This is a 35-year-old female who is 17 weeks . Patient's had intermittent attacks of right quadrant pain which radiated to her back. Patient had 2 visits the emergency room this week. Patient's found have evidence of choledocholithiasis on her liver function tests. Patient admitted for acute cholecystitis and choledocholithiasis. She is status post laparoscopic cholecystectomy. Patient tolerated surgery well. She reports her pain is controlled. She denies any nausea or vomiting. She is passing gas. She is ambulating. She is tolerating diet. She is afebrile. Her LFTs are trending down. She is stable for discharge. Physician Python Django Developer note has been reviewed by physician. Signing provider agrees with the documented findings, assessment, and plan of care. Patient Condition at Discharge: Stable Plan - Discharge Summary New Discharge Prescriptions: New Acetaminophen Tab [Tylenol Tab] 650 mg PO Q8H PRN #21 tablet PRN Reason: Pain Continue buPROPion HCL [Wellbutrin XL] 300 mg PO DAILY [id number] Acid [-U Capsule (formulary)] 1 cap PO DAILY Pantoprazole [Protonix] 40 mg PO DAILY Desvenlafaxine Succinate [Pristiq ER] 50 mg PO DAILY Discharge Medication List Desvenlafaxine Succinate [Pristiq ER] 50 mg PO DAILY 01/12/21 [History] Pantoprazole [Protonix] 40 mg PO DAILY 01/12/21 [History] [id number] Acid [-U Capsule (formulary)] 1 cap PO DAILY 01/12/21 [History] buPROPion HCL [Wellbutrin XL] 300 mg PO DAILY 01/12/21 [History] Acetaminophen Tab [Tylenol Tab] 650 mg PO Q8H PRN #21 tablet 01/15/21 [Rx] Follow up Appointment(s)/Referral(s): Sophia Manjarrez MD [Family Provider] - 1 Week Cierra Montiel DO [Primary Care Provider] - 1 Week Ld Alejandre MD [STAFF PHYSICIAN] - 1 Week Activity/Diet/Wound Care/Special Instructions: No lifting over 10 pounds You may shower. No soaking or tub baths for 2 weeks Very light activity until you are reevaluated at your follow up appointment with your surgeon Discharge Disposition: HOME SELF-CARE
--- NOTE | 2021-01-15 13:56 | P.PN ---
Subjective Progress Note Date: 01/15/21 This is a 35-year-old female, 17 weeks status post laparoscopic cholecystectomy and multiple other medical issues. T bili within normal limits, LFTs improving. Potassium 3.3, received supplementation. Abdominal pain controlled. Tolerating diet with no nausea or vomiting. Passing flatus. Ambu lating, tolerating exertion well. Afebrile. Objective - Vital Signs Vital signs: Vital Signs Temp 98.5 F 01/15/21 08:17 Pulse 78 01/15/21 08:17 Resp 16 01/15/21 08:17 BP 114/76 01/15/21 08:17 Pulse Ox 98 01/15/21 08:17 Intake & Output 01/14/21 01/15/21 01/15/21 18:59 06:59 18:59 Intake Total 800 Output Total 5 Balance 795 Intake: IV 800 Output: Estimated Blood Loss 5 Other: # Voids 1 1 1 - Exam PHYSICAL EXAM: VITAL SIGNS: [As above] GENERAL: Sitting up in bed, no acute distress HEENT: Conjunctivae normal. eyes normal. Oral mucosa moist NECK: No JVD. No thyroid enlargement. No LNs CARDIOVASCULAR: S1, S2 regular.No murmur RESPIRATION: Breath sounds diminished in the bases. No rhonchi or crackles. No bronchial breathing. ABDOMEN: Soft, mild diffuse tenderness, No guarding. Positive Bowel sounds. LEGS: No edema. no swelling PSYCHIATRY: Alert and oriented X3, mood and affect normal. NERVOUS SYSTEM: Cranial N 2-12 grossly normal. Moves all 4 limbs. No focal deficits. Strength and sensation grossly intact. Skin: Warm, dry, no rash. - Labs CBC & Chem 7: 01/15/21 06:36 01/15/21 06:36 Labs: Abnormal Lab Results - Last 24 Hours (Table) 01/15/21 01/15/21 Range/Units 06:36 06:36 RBC 3.72 L (3.80-5.40) m/uL Hct 33.4 L (34.0-46.0) % Sodium 136 L (137-145) mmol/L Potassium 3.3 L (3.5-5.1) mmol/L Chloride 109 H (98-107) mmol/L BUN 2 L (7-17) mg/dL Calcium 8.3 L (8.4-10.2) mg/dL AST 97 H (14-36) U/L ALT 260 H (4-34) U/L Total Protein 5.3 L (6.3-8.2) g/dL Albumin 2.7 L (3.5-5.0) g/dL Assessment and Plan Assessment: Upper abdominal pain, possible acute cholelithiasis and Choledocholithiasis, status post laparoscopic cholecystectomy 17 weeks Elevated LFTs Anxiety, depression Plan: Continue on current medication regime ,monitoring and symptomatic treatment. Patient is expecting to be discharged home today as per surgery. Maintain aggressive pulmonary toileting with incentive spirometer reinforced. Follow up with primary Dr. Darin Blevins in one week. Follow-up with SUBASSEMBLY SUPERVISOR as advised. The impression and plan of care has been dictated as directed. : I performed a history and examination of this patient, discussed the same with the dictator. I agree with the dictator's note ,documented as a scribe. Any additional findings or plans will be noted.
== END 2021-01-15 14:50 | disposition home or self-care (01) | DRG 818 ==
LOC: EC 14:36 → 6PED 18:04 → OBSVTOIN 01-13 23:07
PROVIDERS: ADMIT Surgery; ATTEND Surgery
PROC: 0FT44ZZ Resection of Gallbladder, Percutaneous Endoscopic Approach (ICD-10-PCS; principal; 2021-01-14 08:00)
DX: O99.612 Diseases of the digestive system complicating pregnancy, second trimester (principal); E87.1 Hypo-osmolality and hyponatremia; K80.62 Calculus of gallbladder and bile duct with acute cholecystitis without obstruction; Z3A.17 17 weeks gestation of pregnancy; E87.6 Hypokalemia; F32.9 Major depressive disorder, single episode, unspecified; F41.9 Anxiety disorder, unspecified; O34.82 Maternal care for other abnormalities of pelvic organs, second trimester; O99.344 Other mental disorders complicating childbirth; Z37.0 Single live birth; Z79.899 Other long term (current) drug therapy; Z80.3 Family history of malignant neoplasm of breast; Z83.3 Family history of diabetes mellitus; R94.5 Abnormal results of liver function studies
CPT/HCPCS: 36415; 76705; 76805; 80053; 80074; 80306; 81003; 82150; 82239; 83690; 85025; 85610; 85730; 87635; 93005; 96360; 96361; 99285

== ENCOUNTER 2021-06-21 10:05 | Inpatient (IN) | payer OTHER ==
[2021-06-14 09:46] VITALS: BMI 29.9
[2021-06-21] MEDS ORDERED: LACTATED RINGERS 1,000 ML IV ONE (10:23)
[2021-06-21] MEDS ORDERED: CITRIC ACID-SODIUM CITRATE 15 ML CUP PO ONE (10:23)
[2021-06-21 11:03] LABS: Basophils % (A) 0 %; Eosinophils # (A) 0.1 k/uL (0-0.7); Eosinophils % (A) 1 %; HCT 36.7 % (34.0-46.0); HGB 11.9 gm/dL (11.4-16.0); Hypochromasia Slight; Lymphocytes # (A) 1.8 k/uL (1.0-4.8); Lymphocytes % (A) 16 %; MCH 27.4 pg (25.0-35.0); MCHC 32.5 g/dL (31.0-37.0); MCV 84.2 fL (80.0-100.0); Mean Platelet Volume 9.3; Monocytes # (A) 0.5 k/uL (0-1.0); Monocytes % (A) 4 %; Neutrophils % (A) 78 %; Platelet Count 185 k/uL (150-450); RBC 4.36 m/uL (3.80-5.40); RDW 15.3 % (11.5-15.5); WBC 11.6 k/uL (3.8-10.6)
[2021-06-21] MEDS ORDERED: MIDAZOLAM 2 MG/2 ML VIAL ONE (11:46)
[2021-06-21] MEDS ORDERED: ONDANSETRON 4 MG/2 ML VIAL ONE (11:46)
[2021-06-21] MEDS ORDERED: KETOROLAC 15 MG/ML 1 ML VIAL ONE (11:46)
[2021-06-21] MEDS ORDERED: MORPHINE SULFATE (PF) 0.3 MG/0.3 ML SYR ONE (11:46)
[2021-06-21] MEDS ORDERED: NALBUPHINE 10 MG/ML (1 ML AMP) ONE (11:46)
[2021-06-21] MEDS ORDERED: DEXAMETHASONE SOD PHOSPHATE 10 MG/ML 1 ML VIAL ONE (11:46)
[2021-06-21] MEDS ORDERED: OXYTOCIN 30 UNITS/500 ML NS BAG IV ONE (11:46)
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
[2021-06-21] MEDS ORDERED: diphenhydrAMINE 50 MG/ML 1 ML VIAL IVP PRN ×2 (12:46)
[2021-06-21] MEDS ORDERED: ONDANSETRON 4 MG/2 ML VIAL IVP PRN (12:46)
[2021-06-21] MEDS ORDERED: diphenhydrAMINE 50 MG CAP PO PRN (12:46)
[2021-06-21] MEDS ORDERED: ZOLPIDEM 5 MG TAB PO PRN (12:46)
[2021-06-21] MEDS ORDERED: NALOXONE 0.4 MG/ML 1 ML VIAL IV PRN (12:46)
[2021-06-21] MEDS ORDERED: diphenhydrAMINE 25 MG CAP PO PRN (12:46)
[2021-06-21] MEDS ORDERED: METOCLOPRAMIDE 5 MG/ML 2 ML VIAL IVP PRN (12:46)
[2021-06-21] MEDS ORDERED: SIMETHICONE 80 MG CHEWABLE PO PRN (12:46)
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
[2021-06-21] MEDS ORDERED: OXYTOCIN 30 UNITS/500 ML NS 30 UNIT in SALINE 1 500ML.BAG IV SCH (13:15)
[2021-06-21] MEDS: LACTATED RINGERS 1,000 ML IV SCH (14:08)
[2021-06-21] MEDS: ACETAMINOPHEN TAB 500 MG TAB PO SCH ×2 (15:43→21:49)
[2021-06-21] MEDS: IBUPROFEN 600 MG TAB PO SCH (18:35)
[2021-06-21 21:15] VITALS: RESP 16
[2021-06-22] MEDS: SENNOSIDES-DOCUSATE SODIUM 1 EACH TAB PO SCH ×3 (01:01→20:47)
[2021-06-22] MEDS: IBUPROFEN 600 MG TAB PO SCH ×4 (01:01→20:47)
[2021-06-22] MEDS: LACTATED RINGERS 1,000 ML IV SCH ×3 (01:02→14:16)
[2021-06-22] MEDS: ACETAMINOPHEN TAB 500 MG TAB PO SCH ×4 (04:13→23:52)
[2021-06-22 07:02] LABS: Basophils % (A) 0 %; Eosinophils # (A) 0.1 k/uL (0-0.7); Eosinophils % (A) 0 %; HCT 34.5 % (34.0-46.0); Hypochromasia Slight; Lymphocytes # (A) 1.8 k/uL (1.0-4.8); Lymphocytes % (A) 13 %; MCV 84.2 fL (80.0-100.0); Mean Platelet Volume 8.4; Monocytes # (A) 0.6 k/uL (0-1.0); Monocytes % (A) 5 %; Neutrophils # (A) 11.1 k/uL (1.3-7.7); Neutrophils % (A) 81 %; Platelet Count 202 k/uL (150-450); RDW 14.8 % (11.5-15.5); WBC 13.7 k/uL (3.8-10.6)
--- NOTE | 2021-06-22 08:07 | P.PN ---
Subjective Progress Note Date: 06/22/21 Principal diagnosis: Doing well postoperative day #1 Slept well. Pain well managed. Breast-feeding going well. No complaints. Objective - Vital Signs Vital signs: Vital Signs Temp 97.8 F 06/22/21 04:00 Pulse 64 06/22/21 04:00 Resp 16 06/22/21 04:00 BP 101/64 06/22/21 04:00 Pulse Ox 100 06/22/21 04:00 Intake & Output 06/21/21 06/22/21 06/22/21 18:59 06:59 18:59 Intake Total 480 Output Total 800 1500 Balance -320 -1500 Weight 81.647 kg Intake: Oral 480 Output: Urine 800 1500 Other: # Voids 1 - Constitutional General appearance: Present: average body habitus, cooperative - EENT Eyes: Present: PERRLA ENT: Present: hearing grossly normal - Neck Thyroid: negative: normal size - Respiratory Respiratory: bilateral: CTA - Cardiovascular Rhythm: regular - Gastrointestinal Gastrointestinal Comment(s): Incision clean and dry, intact, Steri-Strips applied. Fundus firm, midline, symmetric, 18 week size. General gastrointestinal: Present: normal bowel sounds - Integumentary Integumentary: Present: normal - Neurologic Neurologic: Present: CNII-XII intact - Musculoskeletal Musculoskeletal: Present: gait normal, strength equal bilaterally - Psychiatric Psychiatric: Present: appropriate affect, intact judgment & insight - Labs CBC & Chem 7: 06/22/21 06:49 Labs: Abnormal Lab Results - Last 24 Hours (Table) 06/21/21 06/22/21 Range/Units 10:30 06:49 WBC 11.6 H 13.7 H (3.8-10.6) k/uL Hgb 11.0 L (11.4-16.0) gm/dL Neutrophils # 9.0 H 11.1 H (1.3-7.7) k/uL Assessment and Plan Assessment: Doing well postoperative day #1 Plan: Continue postoperative care. Advanced diet and activity. Likely discharge home tomorrow.
--- NOTE | 2021-06-22 08:52 | P.PN ---
Progress Note - Text Postop day 1 from under spinal anesthesia with intrathecal morphine given for postop pain management. Patient is doing well. Pain is well controlled. On visual analog scale 3/10 Mild itching present No nausea or vomiting reported. No Headache or weakness and numbness in the legs. No complications from spinal anesthesia.
[2021-06-23] MEDS: IBUPROFEN 600 MG TAB PO SCH ×2 (03:09→08:50)
[2021-06-23] MEDS: ACETAMINOPHEN TAB 500 MG TAB PO SCH ×2 (06:12→11:55)
[2021-06-23] MEDS: SENNOSIDES-DOCUSATE SODIUM 1 EACH TAB PO SCH (08:50)
[2021-06-23 09:10] VITALS: BP 119/70; PULSE 75; TEMP 98
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
== END 2021-06-23 12:05 | disposition home or self-care (01) | DRG 788 ==
LOC: 4FBP 10:05
PROVIDERS: ADMIT Obstetrics & Gynecology; ATTEND Obstetrics & Gynecology
PROC: 10D00Z1 Extraction of Products of Conception, Low, Open Approach (ICD-10-PCS; principal; 2021-06-21 12:00)
DX: O99.344 Other mental disorders complicating childbirth (principal); Z37.0 Single live birth; F32.9 Major depressive disorder, single episode, unspecified; F41.9 Anxiety disorder, unspecified; Z3A.39 39 weeks gestation of pregnancy; Z62.810 Personal history of physical and sexual abuse in childhood; Z80.3 Family history of malignant neoplasm of breast; Z83.3 Family history of diabetes mellitus; Z79.82 Long term (current) use of aspirin; Z79.899 Other long term (current) drug therapy; O69.81X0 Labor and delivery complicated by cord around neck, without compression, not applicable or unspecified
CPT/HCPCS: 85025; 86850; 86900; 86901

== ENCOUNTER 2022-12-01 14:52 | Emergency (ER) | payer OTHER ==
[2022-12-01 15:06] VITALS: RESP 18; TEMP 98
[2022-12-01] MEDS ORDERED: SODIUM CHLORIDE 0.9% 2,000 ML IV STA (15:37)
[2022-12-01] MEDS ORDERED: METOCLOPRAMIDE 5 MG/ML 2 ML VIAL IVP STA (15:37)
--- NOTE | 2022-12-01 16:10 | ED ---
Nausea/Vomiting/Diarrhea HPI - General Chief complaint: Nausea/Vomiting/Diarrhea Stated complaint: Vomiting,8wks Time Seen by Provider: 12/01/22 15:19 Source: patient Mode of arrival: ambulatory Limitations: no limitations - History of Present Illness Initial comments: Patient is a A3 female at 8 weeks who resents to the emergency d epartment for intractable nausea and vomiting. Patient reports 3 episodes of vomiting for the past month with worsening for the past 3 days, unable to tolerate oral intake. Patient has tried vitamin B6 and Unisom with little improvement. She was prescribed Zofran by her knowledge analyst Dr. Barnard last week which is no longer working. She denies fever, chills, abdominal pain, diarrhea, vaginal bleeding, burning with urination. P\ Reports recent normal ultrasound confirming live IUP. - Related Data Home Medications Medication Instructions Recorded Confirmed Desvenlafaxine Succinate [Pristiq 50 mg PO QAM 01/12/21 06/21/21 ER] Pantoprazole [Protonix] 40 mg PO QAM 01/12/21 06/21/21 Vdw-Uoyp-Slagi Acid 1 cap PO QAM 01/12/21 06/21/21 [-U Capsule (formulary)] buPROPion HCL [Wellbutrin XL] 300 mg PO QAM 01/12/21 06/21/21 Aspirin [Adult Low Dose Aspirin EC] 81 mg PO DAILY 06/14/21 06/21/21 Ferrous Sulfate [Feosol] 325 mg PO DAILY 06/14/21 06/21/21 Previous Rx's Medication Instructions Recorded Cephalexin [Keflex] 250 mg PO Q6HR #20 cap 12/01/22 Allergies Allergy/AdvReac Type Severity Reaction Status Date / Time coconut Allergy Anaphylaxis Verified 12/01/22 15:06 nicotine Allergy Rash/Hives Verified 12/01/22 15:06 Review of Systems ROS Statement: Those systems with pertinent positive or pertinent negative responses have been documented in the HPI. ROS Other: All systems not noted in ROS Statement are negative. Past Medical History Past Medical History: GERD/Reflux History of Any Multi-Drug Resistant Organisms: None Reported Past Surgical History: Cholecystectomy Additional Past Surgical History / Comment(s): Ovarian cyst removal 2001. 1 Ectopic . 2 miscarrages Past Anesthesia/Blood Transfusion Reactions: No Reported Reaction Past Psychological History: Anxiety, Depression Smoking Status: Never smoker Past Alcohol Use History: None Reported Past Drug Use History: None Reported - Past Family History Mother Family Medical History: Cancer, Diabetes Mellitus Additional Family Medical History / Comment(s): Breast cancer in early . Sister(s) Family Medical History: Deep Vein Thrombosis (DVT) Additional Family Medical History / Comment(s): Positive for gene General Exam Limitations: no limitations General appearance: alert, in no apparent distress Head exam: Present: atraumatic, normocephalic, normal inspection ENT exam: Present: mucous membranes moist Respiratory exam: Present: normal lung sounds bilaterally. Absent: respiratory distress, wheezes, rales, rhonchi, stridor Cardiovascular Exam: Present: regular rate, normal rhythm, normal heart sounds. Absent: systolic murmur, diastolic murmur, rubs, gallop, clicks GI/Abdominal exam: Present: soft, normal bowel sounds. Absent: distended, tenderness, guarding, rebound, rigid Neurological exam: Present: alert, oriented X3, CN II-XII intact Psychiatric exam: Present: normal affect, normal mood Skin exam: Present: warm, dry, intact, normal color. Absent: rash Course Vital Signs 12/01/22 15:03 Temperature 98.0 F Pulse Rate 93 Respiratory 18 Rate Blood Pressure 137/99 O2 Sat by Pulse 98 Oximetry Medical Decision Making - Medical Decision Making Was pt. sent in by a medical professional or institution ([facility] Arango, BUSINESS CENTER MANAGER, urgent care, hospital, or alf...) When possible be specific @ -[No] Did you speak to anyone other than the patient for history (EMS, parent, family, police, friend...)? What history was obtained from this source @ -[No] Did you review nursing and triage notes (agree or disagree)? Why? @ -[I reviewed and agree with nursing and triage notes] Were old charts reviewed (outside hosp., previous admission, EMS record, old EKG, old radiological studies, urgent care reports/EKG's, alf records)? Report findings @ -[No old charts were reviewed] Differential Diagnosis (chest pain, altered mental status, abdominal pain women, abdominal pain men, vaginal bleeding, weakness, fever, dyspnea, syncope, headache, dizziness, GI bleed, back pain, seizure, CVA, palpatations, mental health)? @ -influenza, hyperemesis gravidarum, gastroenteritis EKG interpreted by me (3pts min.). @ -[As above] X-rays interpreted by me (1pt min.). @ -[None done] CT interpreted by me (1pt min.). @ -[None done] U/S interpreted by me (1pt. min.). @ -[None done] What testing was considered but not performed or refused? (CT, X-rays, U/S, labs)? Why? @ -Considered ultrasound however patient does not have abdominal pain or vaginal bleeding What meds were considered but not given or refused? Why? @ -[None] Did you discuss the management of the patient with other professionals (professionals i.e. , PA, BUSINESS CENTER MANAGER, lab, RT, psych nurse, social services assistant, wrapping machine helper, teacher, hotel security officer, case preparer and liner)? Give summary @ -[No] Was smoking cessation discussed for >3mins.? @ -[No] Was critical care preformed (if so, how long)? @ -[No] Were there social determinants of health that impacted care today? How? (Homelessness, low income, unemployed, alcoholism, drug addiction, transportation, low edu. Level, literacy, decrease access to med. care, correction, rehab)? @ -[No] Was there de-escalation of care discussed even if they declined (Discuss DNR or withdrawal of care, Hospice)? DNR status @ -[No] What co-morbidities impacted this encounter? (DM, HTN, Smoking, COPD, CAD, Cancer, CVA, ARF, Chemo, Hep., AIDS, mental health diagnosis, sleep apnea, morbid obesity)? @ -[None] Was patient admitted / discharged? Hospital course, mention meds given and route, prescriptions, significant lab abnormalities, going to OR and other pertinent info. @ -Discharged-patient given IV fluids and Reglan.her symptoms improved and she passed PO test. Laboratory studies relatively unremarkable. There is mild hyponatremia which was treated with large fluid bolus. Urinalysis did show bacteria. Patient treated with Keflex. She was discharged with a prescription. Undiagnosed new problem with uncertain prognosis? @ -[No] Drug Therapy requiring intensive monitoring for toxicity (Heparin, Nitro, Insulin, Cardizem)? @ -[No] Were any procedures done? @ -[No] Diagnosis/symptom? @ -Nausea and vomiting during Acute, or Chronic, or Acute on Chronic? @ Acute Uncomplicated (without systemic symptoms) or Complicated (systemic symptoms)? @ -Uncomplicated Side effects of treatment? @ -[No] Exacerbation, Progression, or Severe Exacerbation? @ -[No] Poses a threat to life or bodily function? How? (Chest pain, [place], [place], pneumonia, PE, COPD, DKA, ARF, appy, cholecystitis, CVA, Diverticulitis, Homicidal, Suicidal, threat to staff... and all critical care pts) @ -[No] Dr. Smith is my attending. - Lab Data Result diagrams: 12/01/22 15:45 12/01/22 15:45 Lab Results 12/01/22 12/01/22 12/01/22 Range/Units 15:45 15:45 15:45 WBC 7.7 (3.8-10.6) k/uL RBC 4.84 (3.80-5.40) m/uL Hgb 13.9 (11.4-16.0) gm/dL Hct 39.8 (34.0-46.0) % MCV 82.4 (80.0-100.0) fL MCH 28.7 (25.0-35.0) pg MCHC 34.8 (31.0-37.0) g/dL RDW 12.4 (11.5-15.5) % Plt Count 190 (150-450) k/uL MPV 7.9 Neutrophils % 76 % Lymphocytes % 18 % Monocytes % 5 % Eosinophils % 1 % Basophils % 0 % Neutrophils # 5.8 (1.3-7.7) k/uL Lymphocytes # 1.4 (1.0-4.8) k/uL Monocytes # 0.3 (0-1.0) k/uL Eosinophils # 0.1 (0-0.7) k/uL Basophils # 0.0 (0-0.2) k/uL Sodium 135 L (137-145) mmol/L Potassium 3.7 (3.5-5.1) mmol/L Chloride 107 (98-107) mmol/L Carbon Dioxide 20 L (22-30) mmol/L Anion Gap 8 mmol/L BUN 6 L (7-17) mg/dL Creatinine 0.42 L (0.52-1.04) mg/dL Est GFR (CKD-EPI)AfAm >90 (>60 ml/min/1.73 sqM) Est GFR (CKD-EPI)NonAf >90 (>60 ml/min/1.73 sqM) Glucose 111 H (74-99) mg/dL Calcium 9.0 (8.4-10.2) mg/dL Magnesium 1.9 (1.6-2.3) mg/dL Total Bilirubin 0.6 (0.2-1.3) mg/dL AST 26 (14-36) U/L ALT 35 H (4-34) U/L Alkaline Phosphatase 54 (38-126) U/L Total Protein 6.9 (6.3-8.2) g/dL Albumin 3.9 (3.5-5.0) g/dL HCG, Quant 044321.0 mIU/mL Urine Color Light Yellow Urine Appearance Cloudy H (Clear) Urine pH 6.5 (5.0-8.0) Ur Specific [place] 1.005 (1.001-1.035) Urine Protein Negative (Negative) Urine Glucose (UA) Negative (Negative) Urine Ketones 2+ H (Negative) Urine Blood Negative (Negative) Urine Nitrite Negative (Negative) Urine Bilirubin Negative (Negative) Urine Urobilinogen <2.0 (<2.0) mg/dL Ur Leukocyte Esterase Small H (Negative) Urine RBC 3 (0-5) /hpf Urine WBC 3 (0-5) /hpf Ur Squamous Epith Cells 2 (0-4) /hpf Urine Bacteria Many H (None) /hpf Urine Mucus Few H (None) /hpf Disposition Clinical Impression: Nausea and vomiting during Disposition: HOME SELF-CARE Condition: Good Instructions (If sedation given, give patient instructions): Nausea and Vomiting in (ED) Additional Instructions: Continue vitamin B6, Unisom, and Zofran. Take antibiotic as directed. Follow- up with knowledge analyst in 1-2 days. Return to emergency department if you experience new, concerning, or worsening symptoms. Prescriptions: Cephalexin [Keflex] 250 mg PO Q6HR #20 cap Is patient prescribed a controlled substance at d/c from ED?: No Referrals: Cierra Montiel DO [Primary Care Provider] - 1-2 days
[2022-12-01 16:15] LABS: ALT 35 U/L (4-34); AST 26 U/L (14-36); African American GFR (CKD) >90 (>60 ml/min/1.73 sqM); Albumin 3.9 g/dL (3.5-5.0); Alkaline Phosphatase 54 U/L (38-126); Anion Gap 8 mmol/L; Blood Urea Nitrogen 6 mg/dL (7-17); Carbon Dioxide 20 mmol/L (22-30); Chloride 107 mmol/L (98-107); Glucose 111 mg/dL (74-99); Magnesium 1.9 mg/dL (1.6-2.3); Non-African American GFR(CKD) >90 (>60 ml/min/1.73 sqM); Potassium 3.7 mmol/L (3.5-5.1); Sodium 135 mmol/L (137-145); Total Bilirubin 0.6 mg/dL (0.2-1.3); Total Protein 6.9 g/dL (6.3-8.2)
[2022-12-01 16:29] LABS: Basophils % (A) 0 %; Eosinophils # (A) 0.1 k/uL (0-0.7); Eosinophils % (A) 1 %; HCT 39.8 % (34.0-46.0); HGB 13.9 gm/dL (11.4-16.0); Lymphocytes # (A) 1.4 k/uL (1.0-4.8); Lymphocytes % (A) 18 %; MCH 28.7 pg (25.0-35.0); MCHC 34.8 g/dL (31.0-37.0); MCV 82.4 fL (80.0-100.0); Mean Platelet Volume 7.9; Monocytes # (A) 0.3 k/uL (0-1.0); Monocytes % (A) 5 %; Neutrophils # (A) 5.8 k/uL (1.3-7.7); Neutrophils % (A) 76 %; Platelet Count 190 k/uL (150-450); RBC 4.84 m/uL (3.80-5.40); RDW 12.4 % (11.5-15.5); WBC 7.7 k/uL (3.8-10.6)
[2022-12-01 17:45] LABS: Appearance,Urine Cloudy (Clear); Bacteria,Urine Many /hpf; Bilirubin,Urine Negative (Negative); Blood,Urine Negative (Negative); Color,Urine Light Yellow; Glucose,Urine (UA) Negative (Negative); Leukocyte Esterase,Urine Small (Negative); Mucus,Urine Few /hpf; Nitrite,Urine Negative (Negative); PH, Urine 6.5 (5.0-8.0); Protein,Urine Negative (Negative); RBC,Urine 3 /hpf (0-5); Specific Gravity,Urine 1.005 (1.001-1.035); Squamous Epithelial Cell,Urine 2 /hpf (0-4); Urobilinogen,Urine <2.0 mg/dL (<2.0); WBC,Urine 3 /hpf (0-5)
[2022-12-01 17:49] LABS: Ketones,Urine 2+ (Negative)
[2022-12-01] MEDS ORDERED: CEPHALEXIN 250 MG CAP PO STA (18:07)
[2022-12-01 18:36] VITALS: BP 138/68; PULSE 72
== END 2022-12-01 18:36 | disposition home or self-care (01) ==
LOC: EC 14:52
DX: O21.9 Vomiting of pregnancy, unspecified (principal); O99.611 Diseases of the digestive system complicating pregnancy, first trimester; O9A.511 Psychological abuse complicating pregnancy, first trimester; O99.711 Diseases of the skin and subcutaneous tissue complicating pregnancy, first trimester; K21.9 Gastro-esophageal reflux disease without esophagitis; F41.9 Anxiety disorder, unspecified; F32.A Depression, unspecified; Z91.018 Allergy to other foods; Z88.4 Allergy status to anesthetic agent; Z79.82 Long term (current) use of aspirin; Z79.899 Other long term (current) drug therapy; Z3A.08 8 weeks gestation of pregnancy
CPT/HCPCS: 36415; 80053; 83735; 85025; 81001; 84702; 99284; 96374; 96361 ×2; J2765

== ENCOUNTER 2023-06-25 10:08 | Inpatient (IN) | payer OTHER ==
[2023-06-20 14:39] VITALS: BMI 28.8
[2023-06-25] MEDS ORDERED: OXYTOCIN 10 UNIT/ML 1 ML VIAL IM PRN (10:20)
[2023-06-25] MEDS ORDERED: TRANEXAMIC 1,000 MG/100ML-NACL 1,000 MG in EMPTY BAG 1 BAG IV PRN (10:20)
[2023-06-25] MEDS ORDERED: CARBOPROST TROMETHAMINE 250 MCG/ML 1 ML AMP IM PRN (10:20)
[2023-06-25] MEDS ORDERED: CITRIC ACID-SODIUM CITRATE 15 ML CUP PO ONE (10:20)
[2023-06-25] MEDS ORDERED: METHYLERGONOVINE 0.2 MG/ML 1 ML AMP IM PRN (10:20)
[2023-06-25] MEDS ORDERED: miSOPROStoL 200 MCG TAB PO PRN (10:20)
[2023-06-25] MEDS ORDERED: LACTATED RINGERS 1,000 ML IV ONE (10:20)
[2023-06-25] MEDS: LACTATED RINGERS 1,000 ML IV SCH ×3 (10:30→23:29)
[2023-06-25 11:31] LABS: Basophils % (A) 0 %; Eosinophils # (A) 0.2 k/uL (0-0.7); Eosinophils % (A) 2 %; HCT 35.5 % (34.0-46.0); Lymphocytes # (A) 1.8 k/uL (1.0-4.8); Lymphocytes % (A) 18 %; MCH 29.1 pg (25.0-35.0); MCHC 33.8 g/dL (31.0-37.0); MCV 86.2 fL (80.0-100.0); Mean Platelet Volume 8.2; Monocytes # (A) 0.5 k/uL (0-1.0); Monocytes % (A) 5 %; Neutrophils # (A) 7.4 k/uL (1.3-7.7); Neutrophils % (A) 74 %; Platelet Count 208 k/uL (150-450); Poikilocytosis Slight; RBC 4.12 m/uL (3.80-5.40); RDW 13.4 % (11.5-15.5)
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
[2023-06-25] MEDS ORDERED: ONDANSETRON 4 MG/2 ML VIAL ONE (12:22)
[2023-06-25] MEDS ORDERED: KETOROLAC 15 MG/ML 1 ML VIAL ONE (12:22)
[2023-06-25] MEDS ORDERED: MORPHINE SULFATE (PF) 0.3 MG/0.3 ML SYR ONE (12:22)
[2023-06-25] MEDS: KETOROLAC 15 MG/ML 1 ML VIAL IVP SCH ×2 (13:00→19:55)
[2023-06-25] MEDS ORDERED: diphenhydrAMINE 50 MG/ML 1 ML VIAL IVP PRN ×2 (13:27)
[2023-06-25] MEDS ORDERED: METOCLOPRAMIDE 5 MG/ML 2 ML VIAL IVP PRN (13:27)
[2023-06-25] MEDS ORDERED: ONDANSETRON 4 MG/2 ML VIAL IVP PRN (13:27)
[2023-06-25] MEDS ORDERED: ZOLPIDEM 5 MG TAB PO PRN (13:27)
[2023-06-25] MEDS ORDERED: SIMETHICONE 80 MG CHEWABLE PO PRN (13:27)
[2023-06-25] MEDS ORDERED: Rhogam IMMUNE GLOBULIN 1,500 UNIT/1 ML IM ONE (13:27)
[2023-06-25] MEDS ORDERED: NALOXONE 0.4 MG/ML 1 ML VIAL IV PRN (13:27)
[2023-06-25] MEDS ORDERED: diphenhydrAMINE 50 MG CAP PO PRN (13:27)
[2023-06-25] MEDS ORDERED: diphenhydrAMINE 25 MG CAP PO PRN (13:27)
--- NOTE | 2023-06-25 13:27 | P.OP ---
Date of Procedure: 06/25/23 Preoperative Diagnosis: 1. Term IUP at 39 weeks and 1 day 2. History of 1 prior section with no desire for TOLAC 3. Desire for permanent sterilization and risk reduction Postoperative Diagnosis: Same Procedure(s) Performed: Repeat Lower Transverse Section with Bilateral Salpingectomy and Pap Smear Implants: None Anesthesia: spinal Surgeon: Lillie Barnard Senior Business Broker #1: Maryellen Valentine Estimated Blood Loss (ml): 350 IV fluids (ml): 1,000 Urine output (ml): 200 (clear yellow) Pathology: none sent Condition: stable Disposition: floor Indications for Procedure: This is a 38 year old at 39 weeks and 1 day gestation who presents for schedule repeat section. Risks, benefits, and alternatives to section were discussed with the patient including risk of bleeding, infection, damage to surrounding structures including bladder/bowel/ureters, and post- operative VTE. The risk of regret and the non-reversible nature of bilateral bobby pingectomy were also discussed with the patient. She will never be able to achieve a without IVF again. The patient understands these risks and desires to proceed with surgery. Operative Findings: Viable female in right occiput transverse presentation with apgars of 7 and 8 at 1 and 5 minutes, respectively. Weight is 8 pounds and 0 ounces (3630 grams). Colorless amniotic fluid. Normal uterus, bilateral fallopian tubes and ovaries. Description of Procedure: The patient was taken to the operating room where spinal anesthesia was found to be adequate. Two grams were given for infection prophylaxis. A pap smear was collected prior to the section and sent to the lab. She was prepared and draped in the dorsal supine position with a leftward tilt. A Pfannenstiel skin incision was made with the scalpel. The incision was carried down to the fascia with a bovie. The fascia was incised and extended laterally with Lima s cissors. The superior aspect of the fascia was grasped with Stephanie clamps. The underlying rectus muscle was dissected off bluntly. In a similar fashion, the inferior aspect of the fascia was elevated with Stephanie clamps and the rectus muscle and pyramidalis were dissected off. Excellent hemostasis was achieved with the bovie. The rectus muscle was in the midline down to the level of the pubic symphysis. Pre-peritoneal fatty tissue was bluntly dissected to expose the peritoneum. The peritoneum was found to be free of adherent bowel and entered sharply with Lima scissors. The peritoneal incision was extended superiorly and inferiorly to the bladder reflection with good visualization of the bladder. The bladder blade was inserted and vesicouterine peritoneum was identified. Intraabdominal survey revealed scant, clear peritoneal fluid and the thinned-out lower uterine segment. The vesicouterine peritoneum was opened with scissors and the bladder flap was developed. The bladder blade was repositioned to keep the bladder out of the operative field. The lower uterine segment was incised with a scalpel. The amniotic sac was ruptured and clear fluid was noted. The uterine incision was extended bluntly with lateral and upward traction. The fetus was in right occiput transverse position. The head was elevated out of the pelvis with special attention paid to avoid using the uterine incision as a fulcrum. Gentle fundal pressure was applied once the head was brought into the incision. The was delivered with no difficulty. The mouth and nose were suctioned with a bulb. The cord was clamped and cut. was noted to be spontaneously crying. The was handed off to the pump oiler. IV oxytocin was initiated to facilitate uterine contractions. The placenta was delivered intact with manual massage of uterine fundus. The uterus was then exteriorized and the inside of the uterus was gently wiped with a lap sponge to assure complete removal of placental membranes. The uterine incision was closed with a 0-Polysorb suture in a running locked fashion. A second imbricating layer of 0- Polysorb was placed along the incision. The ovaries and tubes were found to be n ormal. Ligasure device was used to sequentially cauterize and cut the right fallopian tube to the level of the uterine cornua. This was repeated on the left side. The uterus and ovaries were then gently returned to the abdominal cavity. The blood clots and fluid were wiped out of the abdomen and pelvis with moist laparotomy sponges. The pelvis was copiously suction irrigated.The uterine incision was reinspected and excellent hemostasis was noted. The fascial layer was closed with a 0-Vicryl suture. The subcutaneous tissue was reapproximated with 2-0 Plain Gut. The skin was closed with 4-0 Monocryl in a subcuticular fashion. The patient tolerated the procedure well. All the counts were correct times two. The patient was taken to the recovery room in a stable condition.
[2023-06-25] MEDS: SENNOSIDES-DOCUSATE SODIUM 1 EACH TAB PO SCH (19:55)
[2023-06-25] MEDS: ACETAMINOPHEN TAB 500 MG TAB PO SCH (23:20)
[2023-06-26] MEDS: KETOROLAC 15 MG/ML 1 ML VIAL IVP SCH ×4 (02:05→18:21)
[2023-06-26] MEDS: IBUPROFEN 600 MG TAB PO SCH ×4 (02:30→18:20)
[2023-06-26] MEDS: ACETAMINOPHEN TAB 500 MG TAB PO SCH ×5 (05:14→21:26)
[2023-06-26 06:45] LABS: Basophils % (A) 0 %; Eosinophils # (A) 0.1 k/uL (0-0.7); Eosinophils % (A) 1 %; HCT 31.4 % (34.0-46.0); HGB 10.4 gm/dL (11.4-16.0); Hypochromasia Slight; Lymphocytes # (A) 1.6 k/uL (1.0-4.8); Lymphocytes % (A) 15 %; MCH 29.2 pg (25.0-35.0); MCV 88.4 fL (80.0-100.0); Mean Platelet Volume 8.4; Monocytes # (A) 0.7 k/uL (0-1.0); Monocytes % (A) 6 %; Neutrophils # (A) 8.3 k/uL (1.3-7.7); Neutrophils % (A) 76 %; Platelet Count 178 k/uL (150-450); RBC 3.56 m/uL (3.80-5.40); RDW 13.1 % (11.5-15.5); WBC 10.8 k/uL (3.8-10.6)
--- NOTE | 2023-06-26 07:13 | P.PN ---
Progress Note - Text Date: 06/26/2023 Time: 06:58 The patient is status post section Vital signs stable VAS: 0-10 Patient has no complaints of pain. The patient incurred some minimal itching yesterday, this itching is now subsiding. Pain meds to be managed by service.
[2023-06-26] MEDS: SENNOSIDES-DOCUSATE SODIUM 1 EACH TAB PO SCH ×2 (08:18→21:26)
[2023-06-26] MEDS: DESVENLAFAXINE SUCCINATE 50 MG TAB.ER.24H PO SCH (08:18)
[2023-06-26] MEDS: ARIPiprazole 5 MG TAB PO SCH (08:18)
[2023-06-26] MEDS: buPROPion XL 300 MG TAB.ER.24H PO SCH (08:18)
--- NOTE | 2023-06-26 08:50 | P.PNOBGPC ---
Subjective - Subjective Principal diagnosis: s/p repeat section Interval history: The patient is doing well this morning and had no acute events overnight. She has no complaints this morning. She reports minimal lochia, passing flatus, voiding without difficulty, ambulating, and eating/drinking without nausea or vomiting. She is her without difficulty. She denies chest pain, shortness of breathing, fevers, or chills overnight. She denies pain or swelling in the legs. Patient reports: Reports appetite normal, Reports voiding normally, Reports pain well controlled, Reports ambulating normally [place]: doing well (in nursery), nursing well Objective - Vital Signs Latest vital signs: Vital Signs Temp Pulse Resp BP Pulse Ox 06/26/23 04:00 98.1 F 70 16 120/69 06/25/23 23:34 98.1 F 70 16 121/69 06/25/23 20:00 98.1 F 72 16 115/68 06/25/23 13:58 58 L 16 112/69 98 06/25/23 13:43 64 16 113/67 98 06/25/23 13:28 98.4 F 74 16 109/60 98 06/25/23 10:19 97.7 F 82 16 122/82 98 Intake and Output 06/25/23 06/26/23 06/26/23 22:59 06:59 14:59 Output Total 1470 800 Balance -1470 -800 Output: Urine 1400 800 Uretheral ([place]) 1000 Output, Quantitative 70 Blood Loss Other: # Voids 1 - Exam Extremities: Present: normal Abdomen: Present: other (abdominal exam deferred while patient is ) - Labs Labs: Abnormal Lab Results - Last 24 Hours (Table) 06/26/23 Range/Units 06:24 WBC 10.8 H (3.8-10.6) k/uL RBC 3.56 L (3.80-5.40) m/uL Hgb 10.4 L (11.4-16.0) gm/dL Hct 31.4 L (34.0-46.0) % Neutrophils # 8.3 H (1.3-7.7) k/uL Assessment and Plan Assessment: 38 year old now POD#1 s/p repeat section with bilateral salpingectomy and pap smear Plan: 1. Postoperative. Patient doing well and meeting postoperative milestones appropriately. 2. Viable female infant. Doing well in nursery. Dispo: Continue inpatient management.
[2023-06-26] MEDS: LACTATED RINGERS 1,000 ML IV SCH ×4 (09:19→16:48)
[2023-06-26 13:30] LABS: HIV 2 AB Non-Reactive (Non-Reactive); HIV AB P24 Non-Reactive (Non-Reactive); HIV P24 AG Non-Reactive (Non-Reactive)
[2023-06-27] MEDS: IBUPROFEN 600 MG TAB PO SCH ×4 (00:14→22:34)
[2023-06-27] MEDS: LACTATED RINGERS 1,000 ML IV SCH (04:24)
[2023-06-27] MEDS: KETOROLAC 15 MG/ML 1 ML VIAL IVP SCH (04:53)
--- NOTE | 2023-06-27 06:26 | P.PNOBGPC ---
Subjective - Subjective Principal diagnosis: s/p scheduled repeat section with bilateral salpingectomy Interval history: The patient is doing well this morning and had no acute events overnight. She has no complaints this morning. She reports minimal lochia, passing flatus, voiding without difficulty, ambulating, and eating/drinking without nausea or vomiting. She is her without difficulty. She denies chest pain, shortness of breathing, fevers, or chills overnight. She denies pain or swelling in the legs. Patient reports: Reports appetite normal, Reports voiding normally, Reports pain well controlled, Reports ambulating normally : doing well (in nusery, getting IV antibiotics for elevated WBC) Objective - Vital Signs Latest vital signs: Vital Signs Temp Pulse Resp BP Pulse Ox 06/27/23 00:00 98.0 F 73 16 117/66 99 06/26/23 16:00 97.8 F 77 16 130/77 98 06/26/23 12:00 98.7 F 58 L 16 122/75 99 06/26/23 08:00 97.2 F L 86 18 111/69 98 Intake and Output 06/26/23 06/26/23 06/27/23 14:59 22:59 06:59 Output Total 600 Balance -600 Output: Urine 600 Other: # Voids 1 2 - Exam Extremities: Present: normal Abdomen: Present: other (abdominal exam deferred as patient is in nursery the baby) Incision: Present: dressed - Labs Labs: Abnormal Lab Results - Last 24 Hours (Table) 06/26/23 Range/Units 06:24 WBC 10.8 H (3.8-10.6) k/uL RBC 3.56 L (3.80-5.40) m/uL Hgb 10.4 L (11.4-16.0) gm/dL Hct 31.4 L (34.0-46.0) % Neutrophils # 8.3 H (1.3-7.7) k/uL Assessment and Plan Assessment: 38 year old now POD#2 s/p repeat section with bilateral salpingectomy and pap smear Plan: 1. Postoperative. Patient doing well and meeting postoperative milestones appropriately. 2. Viable female infant. In nursery receiving IV antibiotics for elevated white count. Dispo: Continue inpatient management.
[2023-06-27] MEDS: ARIPiprazole 5 MG TAB PO SCH (09:03)
[2023-06-27] MEDS: buPROPion XL 300 MG TAB.ER.24H PO SCH (09:03)
[2023-06-27] MEDS: DESVENLAFAXINE SUCCINATE 50 MG TAB.ER.24H PO SCH (09:03)
[2023-06-27] MEDS: SENNOSIDES-DOCUSATE SODIUM 1 EACH TAB PO SCH ×2 (09:49→22:41)
[2023-06-27] MEDS: ACETAMINOPHEN TAB 500 MG TAB PO SCH ×4 (11:27→22:35)
[2023-06-28] MEDS: IBUPROFEN 600 MG TAB PO SCH ×3 (03:43→15:00)
[2023-06-28] MEDS: ACETAMINOPHEN TAB 500 MG TAB PO SCH ×3 (07:01→14:59)
[2023-06-28] MEDS: SENNOSIDES-DOCUSATE SODIUM 1 EACH TAB PO SCH (09:06)
[2023-06-28] MEDS: DESVENLAFAXINE SUCCINATE 50 MG TAB.ER.24H PO SCH (09:43)
[2023-06-28] MEDS: ARIPiprazole 5 MG TAB PO SCH (09:43)
[2023-06-28] MEDS: buPROPion XL 300 MG TAB.ER.24H PO SCH (09:43)
--- NOTE | 2023-06-28 09:54 | P.PNOBGPC ---
Subjective - Subjective Principal diagnosis: Postop day 3, repeat section with bilateral salpingectomy Interval history: Patient is doing well postoperatively. She is ambulating and voiding without difficulty. She is tolerating a regular diet without nausea or vomiting. States her pain is well-controlled. Patient reports: Reports appetite normal, Reports voiding normally, Reports pain well controlled, Reports ambulating normally : doing well (In special care nursery, awaiting blood cultures) Objective - Vital Signs Latest vital signs: Vital Signs Temp Pulse Resp BP Pulse Ox 06/28/23 08:00 97.8 F 88 20 120/79 98 06/28/23 00:00 97.9 F 68 16 124/71 98 06/27/23 16:00 98.3 F 77 16 124/76 06/27/23 12:00 97.9 F 63 16 109/64 99 Intake and Output 06/27/23 06/28/23 06/28/23 22:59 06:59 14:59 Intake Total 360 Balance 360 Intake: IV 360 Other: # Voids 1 2 1 - Exam Extremities: Present: normal Abdomen: Present: normal appearance, soft Incision: Present: normal, dry, intact Uterus: Present: normal, firm Assessment and Plan (1) Term Current Visit: Yes Status: Acute Code(s): Z34.90 - ENCNTR FOR SUPRVSN OF NORMAL , UNSP, UNSP TRIMESTER SNOMED Code(s): 27729360 (2) H/O section Current Visit: Yes Status: Acute Code(s): Z98.891 - HISTORY OF UTERINE SCAR FROM PREVIOUS SURGERY SNOMED Code(s): 691483577 (3) S/P section Current Visit: Yes Status: Acute Code(s): Z98.891 - HISTORY OF UTERINE SCAR FROM PREVIOUS SURGERY SNOMED Code(s): 632654788 Plan: Patient continues to do well postoperatively. She is requesting to stay an additional day secondary to her infant being in the nursery awaiting a blood culture. Plan to continue routine postoperative care in anticipate discharge home tomorrow.
[2023-06-28 15:04] VITALS: BP 117/78; PULSE 83; RESP 18; TEMP 97.9
== END 2023-06-28 18:29 | disposition home or self-care (01) | DRG 785 ==
LOC: 4FBP 10:08
PROVIDERS: ADMIT Obstetrics & Gynecology; ATTEND Obstetrics & Gynecology
PROC: 0UB70ZZ Excision of Bilateral Fallopian Tubes, Open Approach (ICD-10-PCS; 2023-06-25)
PROC: 10D00Z1 Extraction of Products of Conception, Low, Open Approach (ICD-10-PCS; principal; 2023-06-25 12:00)
DX: O34.211 Maternal care for low transverse scar from previous cesarean delivery (principal); O32.2XX0 Maternal care for transverse and oblique lie, not applicable or unspecified; F32.A Depression, unspecified; F41.9 Anxiety disorder, unspecified; O26.893 Other specified pregnancy related conditions, third trimester; O99.344 Other mental disorders complicating childbirth; Z30.2 Encounter for sterilization; Z37.0 Single live birth; Z3A.39 39 weeks gestation of pregnancy; Z67.11 Type A blood, Rh negative; Z79.82 Long term (current) use of aspirin; Z91.410 Personal history of adult physical and sexual abuse; Z91.018 Allergy to other foods; O99.73 Diseases of the skin and subcutaneous tissue complicating the puerperium; L29.9 Pruritus, unspecified
CPT/HCPCS: 85025; 86850; 86900; 86901; 87390; 88302